=== PATIENT | female | born 1960 | race Two or more races ===

== ENCOUNTER → 2024-09-19 | Outpatient (CLI) | payer MEDICAID, SELFPAY ==
--- NOTE | 2024-09-19 12:40 | XR_ITS ---
Examination: Knee, left , 3 views Technique: Knee AP, lateral, oblique 3 views, standing Date and time of exam: September 19, 2024 1247 hours INDICATIONS: Knee pain post arthroscopy 3 months ago FINDINGS: Prominent osteopenia Moderate to advanced tricompartment arthritis No fracture Small knee effusion IMPRESSION: Moderate to advanced tricompartment osteoarthritis
== END | disposition home or self-care (01) ==
LOC: SDIM 12:29
PROVIDERS: PCP Physician Assistant; Referring Provider Orthopaedic Surgery; Visit Provider Orthopaedic Surgery
DX: M17.12 Unilateral primary osteoarthritis, left knee (principal); Z98.890 Other specified postprocedural states
CPT/HCPCS: 73562

== ENCOUNTER 2024-09-26 20:20 | Inpatient (IN) | payer MEDICAID, SELFPAY ==
--- NOTE | 2024-09-25 11:26 | EKG_ITS ---
[facility] Test Date: 2024-09-25 Pat Name: AMIRA LONG Department: Room: - Gender: Female Spa Associate: BRENT : 1960 Requested By: Nahum Jesus Order Number: [id number] Reading MD: Nahum Jesus Measurements Intervals [place] Rate: 60 P: 52 FL: 157 QRS: 41 QRSD: 90 T: 9 QT: 429 QTc: 429 Interpretive Statements SINUS RHYTHM MODERATE T-WAVE ABNORMALITY, CONSIDER ANTEROLATERAL ISCHEMIA [-0.1+ mV T WAVE IN V3-V6] Compared to ECG 10/12/2023 11:29:51 No significant changes /store/S0/[id number]/ecg/[id number].pdf
[2024-09-25 11:28] VITALS: BMI 35.8
[2024-09-25 13:03] LABS: Basophils # (Auto) 0.1 Thou/mm3 (0.0-0.2); Basophils % (Auto) 1 % (0-2.5); Eosinophils # (Auto) 0.3 Thou/mm3 (0.0-0.5); Eosinophils % (Auto) 5 % (0-10); Hematocrit 33.8 % (36.0-46.0); Hemoglobin 10.5 g/dL (12.0-16.0); Immature Granulocytes % (Auto) 0 % (0-0); Immature Granulocytes Auto 0.02 Thou/mm3 (0.00-0.00); Lymphocytes # (Auto) 1.4 Thou/mm3 (1.0-4.8); Lymphocytes % (Auto) 27 % (10-50); Mean Corpuscular HGB Conc 31.1 g/dl (31.0-37.0); Mean Corpuscular Hemoglobin 26.9 pg (25.0-35.0); Mean Corpuscular Volume 86 fL (80-100); Monocytes # (Auto) 0.5 Thou/mm3 (0.0-0.8); Monocytes % (Auto) 10 % (0-12); Neutrophils % (Auto) 57 % (37-80); Nucleated Red Blood Cell % 0 /100 WBC (0); Platelet Count 349 Thou/mm3 (140-440); RDW Standard Deviation 50.4 fL (36.4-46.3); Red Blood Count 3.91 Miln/mm3 (4.00-5.20); White Blood Count 5.3 Thou/mm3 (3.6-11.0)
[2024-09-25 13:11] LABS: Partial Thromboplastin Time 30.8 Seconds (22.0-36.0); Prothrombin Time 10.9 Seconds (9.0-12.2)
[2024-09-25 13:18] LABS: Alanine Aminotransferase 15 U/L (10-49); Albumin, Serum 4.3 gm/dL (3.4-4.8); Albumin/Globulin Ratio 1.5 (1.2-2.2); Alkaline Phosphatase 74 U/L (46-116); Anion Gap 6 (7-16); Aspartate Amino Transferase 18 U/L (0-34); BUN/Creatinine Ratio 26 Ratio (12-20); Bilirubin,Total 0.2 mg/dL (0.3-1.2); Blood Urea Nitrogen 23 mg/dL (9-23); Calcium 9.1 mg/dL (8.3-10.6); Calcium (Corrected) 9.1 mg/dL (8.5-10.1); Carbon Dioxide 28.8 mMol/L (20.0-31.0); Chloride 107 mMol/L (98-107); Creatinine (Component) 0.9 mg/dL (0.6-1.3); Globulin 2.9 gm/dL (2.3-3.5); Glucose 97 mg/dL (74-106); Osmolality,Calculated 286 (275-295); Potassium 4.8 mMol/L (3.4-5.1); Sodium 142 mMol/L (136-145); Total Protein 7.2 gm/dL (5.7-8.2); eGFR > 60 See Note
--- NOTE | 2024-09-25 13:59 | SUR.PREOP ---
Voice message left for patient to come in at 0900 tomorrow for surgery.
--- NOTE | 2024-09-25 14:23 | ESHP_ITS ---
RE: AMIRA LONG : 1960 DATE OF ADMISSION: 09/26/2024 HISTORY OF PRESENT ILLNESS: The patient presented to me earlier with history of pain, swelling, and locking of the left knee joint. Pain is quite bad. The patient graded intensity of pain 9-10/10. The patient is unable to sleep. Quality of life and activities of daily living is affected. The patient underwent arthroscopic procedure in the past, but it did not help her. The patient wants something to be done about it. PAST MEDICAL HISTORY: The patient has history of diabetes mellitus, high blood pressure. No history of asthma, seizure, chest pain, or myocardial infarction. The patient has history of fibromyalgia. PAST SURGICAL HISTORY: Right shoulder surgery, bladder surgery, gastric bypass surgery, hysterectomy, and recently left knee arthroscopy. DRUG HISTORY: The patient is on, 1. Amlodipine. 2. Lisinopril. 3. Metformin. 4. Tramadol. 5. Levothyroxine. ALLERGIES: NIL KNOWN. FAMILY HISTORY AND SOCIAL HISTORY: The patient denies smoking, drinking, is not working. PHYSICAL EXAMINATION: GENERAL: Normal built lady. VITAL SIGNS: Pulse 86 per minute. Blood pressure is 128/78. NECK: Soft, supple. No masses felt. Trachea is centrally placed. CARDIOVASCULAR SYSTEM: First and second heart sounds normal. No murmur heard. LUNGS: Bilateral vesicular breath sounds. CHEST: Clear. ABDOMEN: Soft. No masses felt. Bowel sounds present. EXTREMITIES: Left knee examination revealed 1+ swelling and 2+ tenderness. Active range of motion 0-110 degrees of flexion. Patellofemoral crepitus is present. The patient walks with a limp. DIAGNOSTIC DATA: X-ray confirms significant osteoarthritic changes of the left knee joint. ASSESSMENT AND PLAN: Since the patient is symptomatic and it is affecting quality of life, therefore, left total knee replacement was discussed and advised. Risks with anesthesia was explained and that includes, but not limited to reaction to anesthetic agents, cardiac arrest or rarely it might be fatal. Risks with operations include infection and if that happens, the patient may need further surgical pressure. Sometimes rare complications including possible damage to nerve or vessels may take place and if that happens, that has to be taken care of. No guarantees given regarding the outcome of the procedure and/or relief of symptoms. Accordingly, surgery is booked for 09/26/2024. Appropriate lab work done. DT: 12:54:39 TT: 14:21:00 Ref: [id number] - TID: [id number]
[2024-09-26] VITALS (29 sets, daily range): BP systolic 103–157; BP diastolic 68–112; PULSE 71–105; RESP 12–25; TEMP 35.9–37.1; O2SAT 93–100; BMI 36.8; BMI 36.9
--- NOTE | 2024-09-26 10:01 | SUR.PREOP ---
Patient expressed gratitude for prayer before their procedure.
[2024-09-26] MEDS: RINGERS LACTATED 1000 ML 1,000 ML 20 ML IV (10:10)
--- NOTE | 2024-09-26 13:42 | XR_ITS ---
Examination: Knee, left , 3 views Technique: Knee AP, lateral, oblique 3 views Date and time of exam: September 26, 2024 1506 hrs. Indications: Postop knee replacement Findings: Total left knee arthroplasty. Satisfactory alignment. No fracture Impression: Total left knee arthroplasty with satisfactory alignment
--- NOTE | 2024-09-26 13:43 | ESOP_ITS ---
Date of Procedure 09/26/24 Pre Op Diagnosis Severe DJD left knee joint Post Op Diagnosis Same Procedure Left total knee replacement. Smooth persona implant. Femur size 6 narrow Tibial baseplate size D Polyethylene size 10 mm with medial stabilizer Patellar size 26 mm Findings Patient has significant osteoarthritic changes of the left knee joint. The articular surface were completely absent on the medial side. There is significant osteophyte present on the femur, tibia and patella. Medial joint space was almost absent Procedure Description The patient was given a [spinal] anesthesia. Once satisfactory anesthesia was achieved a tourniquet was placed on left upper thigh. Intravenous antibiotics was given at the time of anesthesia. The patient was thoroughly prepped and draped. After using Esmarch the tourniquet pressure was raised to 350 mmHg. A skin incision was made 2 inches proximal to the upper pole of patella going as far down as up to the medial aspect of the tibial tuberosity. The skin was raised as a flap on the site. The bleeding vessels were electrocoagulated as and when encountered. The quadriceps tendon, medial border of the patella and the patellar tendon along the medial aspect of the tibial tuberosity was incised and reflected. The patellar tendon was reflected as much as needed to dagoberto the patella. The soft tissue from the upper medial border of the tibia was reflected to correct her genu varum deformity. The knee joint was flexed. The anterior cruciate ligament, medial and lateral meniscus were excised. Next para drill hole was made to the inferior surface of the femur. Following that a swab was placed. A 6?? of abduction was already put into it. Following that a cutting block for the inferior cut of the femur was placed and nicely secured with the pins. The swat was removed. The inferior cut of the femur was made and after that the cutting block was removed. Following that a sizer was placed. A decision was made to use size [6] femur implant. 2 drill holes each in 3?? of external rotation were made. The sizer was removed. Size [6] cutting block was placed. Following that anterior, posterior, anterior chamfer and posterior chamfer cuts were made. The cutting block was removed. The knee joint was extended and a 10 mm trial plastic was removed and the i ntended level of the tibial cut was marked. The knee joint was flexed. With the help of double-pronged the tibia was displaced anteriorly. An extramedullary jig for the cutting block placement of the tibia was placed. The mechanical axis of the zig was parallel to the mechanical axis of the tibia. Following that the tibial cutting block was placed at the desired level and was secured nicely with the help of pins. Following that the tibial cut was made. In this case was posterior cruciate ligament was saved. The cutting block was removed. The spacer was placed and a decision was made to use size [10] polyethylene. The sizing of the tibial baseplate was done and the decision was made to use size [D] tibial baseplate. Following that size [6] trial femur implant was placed in lateralized position and size [D] tibial tibial baseplate along with size [10] plastic was placed in knee joint was flexed and extended quite a few times and tibial baseplate was allowed to sit wherever it wanted to. The markings were made for the tibial baseplate. In this case medial stabilizer trial plastic was used 2 drill holes were made for the inferior surface of the femur trial implant. The trial implant was removed and tibial baseplate was placed again with the help of pins. The collar was placed and superior hole was drilled. Following that a fin cut was made. The patella was reamed with [26] mm diameter reamer. [12] mm thickness was left. A collar was placed and 3 drill holes were made. All the trial implant was placed and patellar tracking was checked and found to be good. Lateral release was done at this point. The wound was irrigated with antibiotic solution every 4-5 minutes. Now the power lavage antibiotic solution was used. The knee joint was flexed. The bone were made dry. The cement was mixed. With the help of cement the tibial baseplate was mounted. The excess cement was removed. The femur implant was placed and trial plastic was placed and knee joint was extended. Patella was also mounted with the help of cementing. Excess cement was removed. Osteophytes from the patella was removed at this time. Once the cement was set the tourniquet pressure was released. The bleeding vessels were electrocoagulated. The trial plastic was removed and 10 mm medial stabilizer ultra high molecular weight polyethylene was placed. Closer. The quadricep tendon was closed with the help of 1 strata fix in continuous fashion. The subcu cutaneous tissue and fat layer was closed with the help of 2 strata fix in continuous fashion. Subcuticular stitch was placed. Prineo tape was applied. Patient tolerated procedure well. Estimated blood loss 25 mL Patient tolerated procedure very well. Estimated blood loss [25] mL. Prognosis in this case is good. This was taken to the recovery room in good condition. Anesthesia GETA and other Pathology / specimen None Estimated Blood Loss 25 Surgeon Nahum Julien MD Surgical Staff Operation Date: 09/26/24 11:00 Case Staff Anesthesiologist: Best Pryor RNgate keeper: Vicente Ruffin
--- NOTE | 2024-09-26 14:06 | SUR.PHASEI ---
1400 Patient arrived to recovery resting comfortably in bed, on oxygen 8L via oxy mask with an oral airway in place, breathing unlabored, vital signs stable, dressing intact to left lower extremity; prineo, abd, bias roll, silk tape, stockinette, no bleeding noted, bilateral dorsalis pedis pulses present when palpated, patient has good circulation to left lower extremity; skin color normal for patient and warm to touch, report received from Shanita STODDARD and Dr. Pryor
--- NOTE | 2024-09-26 16:04 | SUR.PHASEI ---
patients daughter at bedside with patient
--- NOTE | 2024-09-26 16:10 | SUR.PHASEI ---
[address] Julien regarding patient home medication, telephone order read-back received for hospitalist consult to manage patient home medications and pre-existing health issues, will place order in EMR and follow up with hospitalist, telephone order read-back received to change patient diet from regular to consistent carb-low, will place order in EMR
--- NOTE | 2024-09-26 16:23 | ESCONSULT_ITS ---
<Statement entered by Zeeshan Randhawa MD - 09/27/24 09:38> Senior Resident Attestation: I supervised/discussed management plan with sales management intern physician Dr. Rangel, and was involved in the care of this patient. I personally saw and examined the patient and discussed the assessment and plan with the entire medicine team, including my attending. I agree with the assessment and plan as documented. Patient's care was discussed with attending physician, Dr. Guajardo. Zeeshan Randhawa MD PGY-2. HPI Data of Consult Requesting Physician: Nahum Julien MD Attending Provider: Nahum Julien MD Primary Care Provider: Addi Schreiber Consult Narrative Reason for consult: Managment of chronic conditions History of present illness: Ms. Stevens is a 63-year-old female with past medical history significant for type 2 diabetes, hypertension, hyperlipidemia, hypothyroidism and anxiety disorder is status post left total knee replacement surgery. Patient denies any chest pain palpitations or shortness of breath she is currently saturating 96% on 2 L of oxygen. Patient denies any abdominal pain states that she had a bowel movement this morning before surgery denies any constipation or diarrhea. Hospital team is consulted to manage patient's chronic medical conditions. PMH: T2DM, hypertension, hyperlipidemia, hypothyroidism, anxiety disorder PSH: Right shoulder surgery, right knee surgery, bladder surgery SH: Patient denies any drug use or alcohol. Patient stopped smoking cigarettes 35 years ago Home meds: Lisinopril, amlodipine, metformin, levothyroxine, duloxetine, clonazepam cc:: cc: Nahum Julien MD Review of Systems Review of Systems Systems Reviewed: All systems reviewed, normal except as documented Exam Vital Signs Temp Pulse Resp BP Pulse Ox O2 Flow Rate 97.6 F 74 151 H 117/79 97 2 09/26/24 15:37 09/26/24 15:52 09/26/24 15:52 09/26/24 15:52 09/26/24 15:52 09/26/24 15:52 Narrative Exam GENERAL: A&Ox3 . Awake, Not in acute distress, well groomed, calm, saturating on 2L O2 via NC NEURO: no focal neurological deficits notes HEENT: Atraumatic, Normocephalic. mucous membranes moist. Eyes open, symmetrical, & clear HEART: Normal Heart Sounds LUNGS: Clear to auscultation with no wheezing or crackles. ABDOMEN: soft, non-distended, non-tender, bowel sounds heard, no guarding or rebound tenderness SKIN: No Rash or ecchymoses EXTREMITIES: No edema, tenderness, able to move all 4 extremities, pedal pulses palpated, left knee is in surgical wrap appears to dry and clean Results Labs 09/27/24 04:20 09/27/24 04:20 Quality Measures Quality Measures none Medications Home Medications and Allergies Home Medications ?Medication ?Instructions ?Recorded ?Confirmed ?Type lisinopril 10 mg tablet 20 mg PO QDAY #0 tabs 09/26/24 History metformin 500 mg tablet 500 mg PO DAILY 07/21/1805/12 History pregabalin 75 mg capsule (Lyrica) 75 mg PO TID 9 09/26/24 History amlodipine 5 mg tablet 10 mg PO QDAY 10/12/2309/26 History cetirizine 10 mg tablet (Zyrtec) 10 mg PO QDAY 4 09/26/24 History clonazepam 0.5 mg tablet (Klonopin) 1 mg PO BID 09/26/24 History duloxetine 30 mg capsule,delayed 30 mg PO HS 10/12/23 09/26/24 History release levothyroxine 125 mcg tablet 125 mcg PO DAILY 10/12/23 09/26/24 History tramadol 50 mg tablet 100 mg PO TID 10/12/2309/26 History Allergies Allergy/AdvReac Type Severity Reaction Status Date / Time No Known Allergies Allergy Verified 09/26/24 09:47 Visit Medications Fentanyl Citrate (Fentanyl Cit Inj 50 Mcg/Ml Amp 2ml) 50 mcg IV Q5MIN PRN PRN Reason: PAIN SCALE 4-10(Mod-Sev Hydralazine HCl (Hydralazine Inj 20 Mg/Ml Vial) 5 mg IV Q20MIN PRN PRN Reason: SEE COMMENTS Hydromorphone HCl (Hydromorphone Inj 2 Mg/Ml Vial) 0.5 mg IV Q10MIN PRN PRN Reason: PAIN SCALE 4-10(Mod-Sev Lactated Ringer's (Lactated Ringers) 1,000 mls @ 20 mls/hr IV .Q24H ONE Stop: 09/27/24 05:59 Last Admin: 09/26/24 10:10 Dose: 20 mls/hr Meperidine HCl (Meperidine Inj 50 Mg/Ml Vial) 12.5 mg IV Q5M PRN PRN Reason: SHIVERING Metoclopramide HCl (Metoclopramide Inj 5 Mg/Ml Vial 2 Ml) 10 mg IVP X1 PRN; Protocol PRN Reason: NAUSEA OR VOMITING Metoprolol Tartrate (Metoprolol Tartrate Inj 1 Mg/Ml Amp 5 Ml) 1 mg IVP Q5MIN PRN PRN Reason: TACHYCARDIA Midazolam HCl (Midazolam Inj 1 Mg/Ml Vial 2 Ml) 1 mg IV Q5MIN PRN PRN Reason: ANXIETY Ondansetron HCl (Ondansetron Inj 2 Mg/Ml Inj 2 Ml) 4 mg IV X1 PRN PRN Reason: NAUSEA OR VOMITING Discontinued Medications Sodium Chloride 1,000 ml/ (Gentamicin Sulfate 40 mg) 0 ml IRRIG X1 ONE Stop: 09/26/24 07:08 Sodium Chloride 3,000 ml/ (Gentamicin Sulfate 120 mg) 0 ml IRRIG X1 ONE Stop: 09/26/24 07:08 Cefazolin Sodium (Ancef 2gm Ivpb) 2 gm in 100 mls @ 100 mls/hr IV X1 ONE Stop: 09/26/24 06:59 Assessment & Plan Plan Ms. Stevens is a 63-year-old female with past medical history significant for type 2 diabetes, hypertension, hyperlipidemia, hypothyroidism and anxiety disorder is status post left total knee replacement surgery. #Status post knee replacement surgery, left -Patient underwent left knee replacement surgery with Dr. Julien on 09/26 -Will resume DVT prophylaxis based on surgery preference tomorrow -Physical therapy will be ordered tomorrow -Pain control as needed ordered #Primary hypertension #Hyperlipidemia -Resumed home amlodipine and lisinopril for tomorrow -Patient does not take any statins for hyperlipidemia -Lipid panel ordered for a.m. lab #Type 2 diabetes mellitus -A1c ordered for morning lab -Resumed home metformin #Hypothyroidism -Order TSH for a.m. labs -Resumed home levothyroxine #Anxiety disorder -Will hold home clonazepam today due to surgery and anesthesia during surgery and will resume tomorrow -Resumed home duloxetine at bedtime Health Maintenance Disposition: Medsurg DVT Prophylaxis: will hold due to status post surgery, will resume tomorrow GI Prophylaxis: not indicated Diet: carbohydrate consistent Lines: Peripheral lines Code status: Full Assessment and plan discussed with my senior resident Dr. Randhawa & attending physician Dr. Casandra Rangel (PGY-1)- Internal medicine resident Attending Provider Attestation/Addendum I attest that I was physically present for the evaluation, physical examination, lab and imaging review of the patient with the residents. I discussed the case with the residents and agree with the findings and plans of care as documented above. Patient is a 63 years old female with past medical history of diabetes, hypertension, hyperlipidemia, hypothyroidism and anxiety disorder who was admitted for left total knee replacement and underwent the procedure today with orthopedics. Internal medicine consult was requested for management of her medical problems. At bedside, patient appears comfortable, states that her pain has been well-controlled with analgesics. Denies any new complaints. Vital signs are stable, lab results are nonconcerning as well. Resumed her home amlodipine and lisinopril for high blood pressure. Also resumed her home metformin, levothyroxine and duloxetine for diabetes, hypothyroidism and anxiety disorder respectively. We will obtain a lipid panel for a.m. Thank you for the opportunity to participate in care of this patient. We will follow patient along with you. Jose Guajardo MD
--- NOTE | 2024-09-26 16:39 | SUR.PHASEII ---
1639: received report from RICHI Funez. pt alert and oriented but drifts back to sleep. denies any pain or discomfort. no s/s of resp. distress or discomfort. dressing to left knee clean, dry and intact. no bleeding noted from dressing. positive CMS: positive pulse, cap refill less than 2 seconds and able to wiggle left toes.
--- NOTE | 2024-09-26 16:39 | SUR.PHASEII ---
1639 Report given to Jodi Yun RN to assume care of patient, hospitalist at beside with patient assessing patient, patient awake and alert, breathing unlabored, vital signs stable, denies pain, dressing intact; no bleeding noted, patient has good circulation to left lower extremity, drinking 7up; tolerating well, denies nausea
[2024-09-26] MEDS: fentaNYL CIT INJ 50 mCg/ML AMP 2ML IV (17:26)
--- NOTE | 2024-09-26 17:30 | SUR.PHASEII ---
1730: urine output 700 ml
--- NOTE | 2024-09-26 18:00 | SUR.PHASEII ---
1800: ate dinner 100%
--- NOTE | 2024-09-26 19:51 | SUR.PHASEII ---
1950: given report to RICHI Perry at this time.
--- NOTE | 2024-09-26 19:55 | SUR.PHASEII ---
1954: pt transfer to room 358 via bed with daughter at the bedside. pt alert and oriented to name, place and time. denies any pain or discomfort. no s/s of resp. distress or discomfort. dressing to left knee clean, dry and intact. positive CMS: cap refill less than 2seconds, positive pulse and able to wiggle toes.
[2024-09-26] MEDS: MORPHINE SULF INJ 10 MG/ML VIAL 4 MG IV (20:50)
[2024-09-26] MEDS: ceFAZolin/D5W 1 GM IVPB 1 GM/50 ML BAG IV (20:50)
[2024-09-26] MEDS: DULoxetine HCL 30 MG CAPSULE PO (20:50)
[2024-09-27] VITALS (9 sets, daily range): BP systolic 126–164; BP diastolic 66–85; PULSE 75–94; RESP 16–20; TEMP 36.1–37.1; O2SAT 95–98
[2024-09-27] MEDS: MORPHINE SULF INJ 10 MG/ML VIAL 4 MG IV (03:10)
[2024-09-27] MEDS: ceFAZolin/D5W 1 GM IVPB 1 GM/50 ML BAG IV (04:37)
[2024-09-27] MEDS: LEVOTHYROXINE SODIUM 125 MCG TABLET PO (05:40)
[2024-09-27 05:51] LABS: Basophils % (Auto) 0 % (0-2.5); Eosinophils % (Auto) 0 % (0-10); Hematocrit 30.5 % (36.0-46.0); Hemoglobin 9.5 g/dL (12.0-16.0); Immature Granulocytes % (Auto) 0 % (0-0); Immature Granulocytes Auto 0.02 Thou/mm3 (0.00-0.00); Lymphocytes # (Auto) 1.2 Thou/mm3 (1.0-4.8); Lymphocytes % (Auto) 18 % (10-50); Mean Corpuscular HGB Conc 31.1 g/dl (31.0-37.0); Mean Corpuscular Hemoglobin 26.8 pg (25.0-35.0); Mean Corpuscular Volume 86 fL (80-100); Monocytes # (Auto) 0.4 Thou/mm3 (0.0-0.8); Monocytes % (Auto) 5 % (0-12); Neutrophils # (Auto) 5.1 Thou/mm3 (1.8-7.7); Neutrophils % (Auto) 76 % (37-80); Nucleated Red Blood Cell % 0 /100 WBC (0); Platelet Count 329 Thou/mm3 (140-440); RDW Standard Deviation 49.9 fL (36.4-46.3); Red Blood Count 3.55 Miln/mm3 (4.00-5.20); White Blood Count 6.7 Thou/mm3 (3.6-11.0)
[2024-09-27 06:12] LABS: Glucose Estimated Average 114 mg/dL (80-131); Hemoglobin A1C 5.6 % Hgb (4.8-6.0)
[2024-09-27 06:16] LABS: Alanine Aminotransferase 15 U/L (10-49); Albumin, Serum 3.9 gm/dL (3.4-4.8); Albumin/Globulin Ratio 1.6 (1.2-2.2); Alkaline Phosphatase 65 U/L (46-116); Anion Gap 7 (7-16); Aspartate Amino Transferase 21 U/L (0-34); BUN/Creatinine Ratio 20 Ratio (12-20); Bilirubin,Total 0.2 mg/dL (0.3-1.2); Blood Urea Nitrogen 16 mg/dL (9-23); Calcium (Corrected) 9.1 mg/dL (8.5-10.1); Carbon Dioxide 28.7 mMol/L (20.0-31.0); Cardiac Risk Estimate 2.7 RATIO (3.7-5.6); Chloride 107 mMol/L (98-107); Cholesterol 147 mg/dL (132-200); Creatinine (Component) 0.8 mg/dL (0.6-1.3); Estimated Creatinine Clearance 74.8 mL/min (>60); Globulin 2.5 gm/dL (2.3-3.5); Glucose 114 mg/dL (74-106); HDL Cholesterol 55 mg/dL (40-60); LDL Cholesterol,Calculated 76 mg/dL (0-130); Magnesium 2.1 mg/dL (1.6-2.6); Osmolality,Calculated 287 (275-295); Potassium 4.4 mMol/L (3.4-5.1); Sodium 143 mMol/L (136-145); Thyroid Stimulating Hormone 3.15 uIU/mL (0.55-4.78); Total Protein 6.4 gm/dL (5.7-8.2); Triglycerides 81 mg/dL (30-150); eGFR > 60 See Note
[2024-09-27] MEDS: amLODIPine BESYLATE 5 MG TABLET 10 MG PO (08:44)
[2024-09-27] MEDS: Lisinopril 20 MG TABLET PO (08:45)
[2024-09-27] MEDS: traMADol HCL 50 MG TABLET 100 MG PO ×3 (10:05→19:47)
--- NOTE | 2024-09-27 10:08 | ESPR_ITS ---
Documentation for date of: 09/27/24 Subjective Subjective Interval history: Patient is seen and examined at bedside. Patient endorses her pain is well- controlled with medications denies any pain. Patient did request that if we could resume her home Ativan as she feels very anxious. Patient also has physical therapy scheduled soon therefore encouraged the patient to take oral pain control rather than IV. Patient would like tramadol as she has previously used it. Patient has no other complaints. Vitals are stable and labs are within normal limits. Exam Vital Signs Temp Pulse Resp BP Pulse Ox O2 Del Method O2 Flow Rate 97.6 F 75 16 138/66 H 98 Nasal Cannula 2 09/27/24 08:00 09/27/24 08:45 09/27/24 08:00 09/27/24 08:45 09/27/24 08:00 09/27/24 08:00 09/27/24 08:00 Narrative Exam GENERAL: A&Ox3 . Awake, Not in acute distress, well groomed, calm, saturating on room air NEURO: no focal neurological deficits notes HEENT: Atraumatic, Normocephalic. mucous membranes moist. Eyes open, symmetrical, & clear HEART: Normal Heart Sounds LUNGS: Clear to auscultation with no wheezing or crackles. ABDOMEN: soft, non-distended, non-tender, bowel sounds heard, no guarding or rebound tenderness SKIN: No Rash or ecchymoses EXTREMITIES: No edema, tenderness, able to move all 4 extremities, pedal pulses palpated, left knee is in surgical wrap appears to dry and clean Objective Labs 09/27/24 04:20 09/27/24 04:20 Labs: Laboratory Results - last 24 hr 09/25/24 09/27/24 12:25 04:20 WBC 6.7 RBC 3.55 L Hgb 9.5 L Hct 30.5 L MCV 86 MCH 26.8 MCHC 31.1 RDW Std Deviation 49.9 H Plt Count 329 Neut % (Auto) 76 Lymph % (Auto) 18 [place] % (Auto) 5 Eos % (Auto) 0 Baso % (Auto) 0 Neut # (Auto) 5.1 Lymph # (Auto) 1.2 [place] # (Auto) 0.4 Eos # (Auto) 0.0 Baso # (Auto) 0.0 Immature Gran # (Auto) 0.02 H Absolute Nucleated RBC 0.00 Immature Gran % 0 Nucleated RBC % 0 Sodium 143 Potassium 4.4 Chloride 107 Carbon Dioxide 28.7 Anion Gap 7 BUN 16 Creatinine 0.8 Estim Creat Clear Calc 74.8 eGFR > 60 BUN/Creatinine Ratio [address]ucose [address] Glu mg/dL 114 Hemoglobin A1c 5.6 Calculated Osmolality 287 Calcium 9.0 Corrected Calcium 9.1 Phosphorus 4.0 Magnesium 2.1 Total Bilirubin 0.2 L AST 21 ALT 15 Alkaline Phosphatase 65 Total Protein 6.4 Albumin 3.9 Globulin 2.5 Albumin/Globulin Ratio 1.6 Triglycerides 81 Cholesterol 147 LDL Cholesterol, Calc 76 HDL Cholesterol 55 Cholesterol/HDL Ratio 2.7 L TSH 3.15 Blood Type O Negative Antibody Screen NEGATIVE Crossmatch See Detail Blood Bank Wristband ID Yes Quality Measures Quality Measures none Assessment & Plan Assessment Current Active Medications: Generic Name Dose Route Start Last Admin Trade Name Freq PRN Reason Stop Dose Admin Amlodipine Besylate 10 mg 09/27/24 09:00 09/27/24 08:44 Amlodipine Besylate 5 Mg Tablet PO 10/27/24 08:59 10 mg QDAY RAFY Administration Duloxetine HCl 30 mg 09/26/24 21:00 09/26/24 20:50 Duloxetine Hcl 30 Mg Capsule PO 10/26/24 20:59 30 mg HS RAFY Administration Levothyroxine Sodium 125 mcg 09/27/24 06:00 09/27/24 05:40 Levothyroxine Sodium 125 Mcg Tablet PO 10/27/24 05:59 125 mcg ACBR RAFY Administration Lisinopril 20 mg 09/27/24 09:00 09/27/24 08:45 Lisinopril 20 Mg Tablet PO 10/27/24 08:59 20 mg QDAY RAFY Administration Morphine Sulfate 4 mg 09/27/24 09:58 Morphine Sulf Inj 10 Mg/Ml Vial IV 10/01/24 20:19 Q4HR PRN PAIN Ondansetron HCl 4 mg 09/26/24 20:20 Ondansetron Inj 2 Mg/Ml Inj 2 Ml IV 10/26/24 20:19 Q6HR PRN NAUSEA OR VOMITING Tramadol HCl 100 mg 09/27/24 09:56 09/27/24 10:05 Tramadol Hcl 50 Mg Tablet PO 10/02/24 09:55 100 mg Q6HR PRN Administration PAIN Plan Ms. Morairiarte is a 63-year-old female with past medical history significant for type 2 diabetes, hypertension, hyperlipidemia, hypothyroidism and anxiety disorder is status post left total knee replacement surgery. #Status post knee replacement surgery, left -Patient underwent left knee replacement surgery with Dr. Julien on 09/26 -Physical therapy ordered -Pain control as needed ordered -DVT prophylaxis as per orthopedic surgeon #Primary hypertension #Hyperlipidemia -Resumed home amlodipine and lisinopril for tomorrow -Patient does not take any statins for hyperlipidemia -Lipid panel within normal limits #Type 2 diabetes mellitus -A1c 5.6 on 09/27 -Resumed home metformin #Hypothyroidism -TSH 3.15 on 09/27 -Resumed home levothyroxine #Anxiety disorder -resumed home clonazepam -Resumed home duloxetine at bedtime Health Maintenance Disposition: Medsurg DVT Prophylaxis: as per orthopedic surgeon preference GI Prophylaxis: not indicated Diet: carbohydrate consistent Lines: Peripheral lines Code status: Full Assessment and plan discussed with my attending physician Dr. Casandra Rangel (PGY-1)- Internal medicine resident Attending Provider Attestation/Addendum I attest that I was physically present for the evaluation, physical examination, lab and imaging review of the patient with the residents. I discussed the case with the residents and agree with the findings and plans of care as documented above. At bedside today, patient states she is feeling well. Her pain has been well- controlled with analgesics. She requested to resume her home Ativan for anxiety, which is resumed. Also stated that she prefers tramadol for pain control, started on tramadol as well. We will continue her medication for hypertension, diabetes, hypothyroidism and anxiety disorder. Patient undergoing physical therapy. Thank you for the opportunity to participate in care of this patient. We will follow patient along with you. Jose Guajardo MD
[2024-09-27] MEDS: clonazePAM 0.5 MG TABLET 1 MG PO (20:47)
[2024-09-27] MEDS: DULoxetine HCL 30 MG CAPSULE PO (20:47)
--- NOTE | 2024-09-27 20:50 | PC.NURSE ---
Pt is crying for pain, Tramadol was given an hour ago but still in too much pain, MD Win made aware, new order made for IV pain meds, will administer pain meds once available.
[2024-09-27] MEDS: MORPHINE SULF INJ 10 MG/ML VIAL 2 MG IVP (21:16)
[2024-09-28] VITALS (8 sets, daily range): BP systolic 110–145; BP diastolic 59–85; PULSE 87–115; RESP 16–20; TEMP 36.3–36.8; O2SAT 93–99
[2024-09-28] MEDS: MORPHINE SULF INJ 10 MG/ML VIAL 2 MG IVP ×3 (01:26→17:28)
[2024-09-28] MEDS: LEVOTHYROXINE SODIUM 125 MCG TABLET PO (05:32)
[2024-09-28 05:49] LABS: Basophils % (Auto) 0 % (0-2.5); Eosinophils # (Auto) 0.1 Thou/mm3 (0.0-0.5); Eosinophils % (Auto) 1 % (0-10); Hematocrit 31.3 % (36.0-46.0); Hemoglobin 9.8 g/dL (12.0-16.0); Immature Granulocytes % (Auto) 0 % (0-0); Immature Granulocytes Auto 0.02 Thou/mm3 (0.00-0.00); Lymphocytes # (Auto) 2.6 Thou/mm3 (1.0-4.8); Lymphocytes % (Auto) 33 % (10-50); Mean Corpuscular HGB Conc 31.3 g/dl (31.0-37.0); Mean Corpuscular Hemoglobin 26.3 pg (25.0-35.0); Mean Corpuscular Volume 84 fL (80-100); Monocytes # (Auto) 0.9 Thou/mm3 (0.0-0.8); Monocytes % (Auto) 11 % (0-12); Neutrophils # (Auto) 4.4 Thou/mm3 (1.8-7.7); Neutrophils % (Auto) 55 % (37-80); Nucleated Red Blood Cell % 0 /100 WBC (0); Platelet Count 283 Thou/mm3 (140-440); Red Blood Count 3.72 Miln/mm3 (4.00-5.20); White Blood Count 7.9 Thou/mm3 (3.6-11.0)
[2024-09-28 06:19] LABS: Alanine Aminotransferase 12 U/L (10-49); Albumin, Serum 3.9 gm/dL (3.4-4.8); Albumin/Globulin Ratio 1.4 (1.2-2.2); Alkaline Phosphatase 65 U/L (46-116); Anion Gap 8 (7-16); Aspartate Amino Transferase 22 U/L (0-34); BUN/Creatinine Ratio 18 Ratio (12-20); Bilirubin,Total 0.3 mg/dL (0.3-1.2); Blood Urea Nitrogen 14 mg/dL (9-23); Calcium 8.6 mg/dL (8.3-10.6); Calcium (Corrected) 8.7 mg/dL (8.5-10.1); Chloride 102 mMol/L (98-107); Creatinine (Component) 0.8 mg/dL (0.6-1.3); Estimated Creatinine Clearance 74.8 mL/min (>60); Globulin 2.8 gm/dL (2.3-3.5); Glucose 99 mg/dL (74-106); Magnesium 1.8 mg/dL (1.6-2.6); Osmolality,Calculated 274 (275-295); Phosphorous 2.7 mg/dL (2.4-5.1); Potassium 3.6 mMol/L (3.4-5.1); Sodium 137 mMol/L (136-145); Total Protein 6.7 gm/dL (5.7-8.2); eGFR > 60 See Note
[2024-09-28] MEDS: clonazePAM 0.5 MG TABLET 1 MG PO (09:26)
[2024-09-28] MEDS: traMADol HCL 50 MG TABLET 100 MG PO ×3 (09:27→20:41)
[2024-09-28] MEDS: Lisinopril 20 MG TABLET PO (09:27)
[2024-09-28] MEDS: amLODIPine BESYLATE 5 MG TABLET 10 MG PO (09:27)
--- NOTE | 2024-09-28 10:09 | CHAP ---
Patient was visited by the Spiritual Care Volunteer who prayed for them. (Volunteer was in the hospital from 11:05-11:50.)
--- NOTE | 2024-09-28 13:18 | ESPR_ITS ---
Documentation for date of: 09/28/24 Subjective Subjective Interval history: Patient was seen and examined at the bedside. No acute overnight events. She reports pain in her knee and was taking tramadol, advised to ask for morphine as needed for pain. Will continue current management and monitor patient. Exam Vital Signs Temp Pulse Resp BP Pulse Ox O2 Del Method O2 Flow Rate 97.3 F 100 16 118/59 L 96 Nasal Cannula 2 09/28/24 12:00 09/28/24 12:00 09/28/24 12:00 09/28/24 12:00 09/28/24 12:00 09/28/24 07:48 09/28/24 07:48 Narrative Exam Gen: Well-developed and well-nourished female. HEENT: NCAT, PERRLA, EOMI, MMM, anicteric conjunctivae. CVS: normal S1 and S2. RRR. No M/R/G. Resp: CTA B/L. No rhonchi, rales, crackles or wheezing. Abd: soft, non-tender, non-distended. BS+ in all 4 quadrants. MSK: No edema or rash. Left knee is in surgical wrap appears to dry and clean, tender to ROM. Neuro: CN II-XII grossly intact. Alert and oriented x3. Psych: appropriate mood and affect. Objective Labs 09/28/24 04:52 09/28/24 04:52 Labs: Laboratory Results - last 24 hr 09/25/24 09/28/24 12:25 04:52 WBC 7.9 RBC 3.72 L Hgb 9.8 L Hct 31.3 L MCV 84 MCH 26.3 MCHC 31.3 RDW Std Deviation 48.0 H Plt Count 283 D Neut % (Auto) 55 Lymph % (Auto) 33 [place] % (Auto) 11 Eos % (Auto) 1 Baso % (Auto) 0 Neut # (Auto) 4.4 Lymph # (Auto) 2.6 [place] # (Auto) 0.9 H Eos # (Auto) 0.1 Baso # (Auto) 0.0 Immature Gran # (Auto) 0.02 H Absolute Nucleated RBC 0.00 Immature Gran % 0 Nucleated RBC % 0 Sodium 137 Potassium 3.6 D Chloride 102 Carbon Dioxide 27.0 Anion Gap 8 BUN 14 Creatinine 0.8 Estim Creat Clear Calc 74.8 eGFR > 60 BUN/Creatinine Ratio 18 Glucose 99 Calculated Osmolality 274 L Calcium 8.6 Corrected Calcium 8.7 Phosphorus 2.7 Magnesium 1.8 Total Bilirubin 0.3 AST 22 ALT 12 Alkaline Phosphatase 65 Total Protein 6.7 Albumin 3.9 Globulin 2.8 Albumin/Globulin Ratio 1.4 Crossmatch See Detail Quality Measures Quality Measures VTE prophylaxis Assessment & Plan Assessment Current Active Medications: Generic Name Dose Route Start Last Admin Trade Name Freq PRN Reason Stop Dose Admin Amlodipine Besylate 10 mg 09/27/24 09:00 09/28/24 09:27 Amlodipine Besylate 5 Mg Tablet PO 10/27/24 08:59 10 mg QDAY RAFY Administration Clonazepam 1 mg 09/27/24 10:17 09/28/24 09:26 Clonazepam 0.5 Mg Tablet PO 10/02/24 20:59 1 mg BID PRN Administration anxiety Duloxetine HCl 30 mg 09/26/24 21:00 09/27/24 20:47 Duloxetine Hcl 30 Mg Capsule PO 10/26/24 20:59 30 mg HS RAFY Administration Levothyroxine Sodium 125 mcg 09/27/24 06:00 09/28/24 05:32 Levothyroxine Sodium 125 Mcg Tablet PO 10/27/24 05:59 125 mcg ACBR RAFY Administration Lisinopril 20 mg 09/27/24 09:00 09/28/24 09:27 Lisinopril 20 Mg Tablet PO 10/27/24 08:59 20 mg QDAY RAFY Administration Morphine Sulfate 2 mg 09/28/24 09:19 Morphine Sulf Inj 10 Mg/Ml Vial IVP 10/02/24 20:52 Q4HR PRN Pain 7-10 Ondansetron HCl 4 mg 09/26/24 20:20 Ondansetron Inj 2 Mg/Ml Inj 2 Ml IV 10/26/24 20:19 Q6HR PRN NAUSEA OR VOMITING Tramadol HCl 100 mg 09/27/24 14:12 09/28/24 09:27 Tramadol Hcl 50 Mg Tablet PO 10/02/24 09:55 100 mg Q4HR PRN Administration PAIN Plan Ms. Stevens is a 63-year-old female with past medical history significant for type 2 diabetes, hypertension, hyperlipidemia, hypothyroidism and anxiety disorder is status post left total knee replacement surgery. #Status post knee replacement surgery, left, post op D2. -Patient underwent left knee replacement surgery with Dr. Julien on 09/26. Plan: -Physical therapy ordered. -Pain control as needed with tramadol and morphine. -DVT prophylaxis as per orthopedic surgeon. #Primary hypertension. #Hyperlipidemia, ruled out. -Patient does not take any statins for hyperlipidemia. -Lipid panel within normal limits. Plan: -home amlodipine and lisinopril resumed. #Type 2 diabetes mellitus. -A1c 5.6 on 09/27. Plan: -Resumed home metformin. #Hypothyroidism. -TSH 3.15 on 09/27. Plan: -Resumed home levothyroxine. #Anxiety disorder. Plan: -resumed home clonazepam. -Resumed home duloxetine at bedtime. Health Maintenance: [facility] Prophylaxis: as per orthopedic surgeon preference GI Prophylaxis: not indicated Diet: carbohydrate consistent Lines: Peripheral lines Code status: Full Assessment and plan discussed with my attending physician Dr. Guajardo. Zeeshan Randhawa MD, PGY 2. Disclaimer: This note was dictated by speech recognition. Minor errors in senior compensation analyst may be present due to voice recognition software. Attending Provider Attestation/Addendum I attest that I was physically present for the evaluation, physical examination, lab and imaging review of the patient with the residents. I discussed the case with the residents and agree with the findings and plans of care as documented above. At bedside today, patient appears comfortable. States that her pain has been well-controlled with analgesics. Continues to be on amlodipine, lisinopril, metformin, levothyroxine, clonazepam and diltiazem for hypertension, diabetes, hypothyroidism and anxiety disorder. Underwent physical therapy yesterday, recommended DC to home with front wheeled walker. We will continue to follow patient with you until she remains in the hospital. DVT prophylaxis and DC planning as per orthopedics. Jose Guajardo MD
--- NOTE | 2024-09-28 20:11 | PC.NURSE ---
MD Verdugo put order for discahrge order, pt unable to ambulate today, and family asking pt to go SNF, per MD will talked to the pt in AM.
[2024-09-28] MEDS: DULoxetine HCL 30 MG CAPSULE PO (20:41)
[2024-09-28] MEDS: ASPIRIN EC 81 MG TABEC PO (20:41)
[2024-09-29] VITALS (9 sets, daily range): BP systolic 96–119; BP diastolic 60–69; PULSE 102–116; RESP 16–20; TEMP 36.1–36.6; O2SAT 90–97; BMI 36.8; BMI 12.0
[2024-09-29] MEDS: MORPHINE SULF INJ 10 MG/ML VIAL 2 MG IVP (00:21)
[2024-09-29] MEDS: LEVOTHYROXINE SODIUM 125 MCG TABLET PO (05:13)
[2024-09-29 05:33] LABS: Basophils % (Auto) 0 % (0-2.5); Eosinophils # (Auto) 0.1 Thou/mm3 (0.0-0.5); Eosinophils % (Auto) 1 % (0-10); Hematocrit 31.5 % (36.0-46.0); Hemoglobin 9.7 g/dL (12.0-16.0); Immature Granulocytes % (Auto) 1 % (0-0); Immature Granulocytes Auto 0.08 Thou/mm3 (0.00-0.00); Lymphocytes # (Auto) 3.5 Thou/mm3 (1.0-4.8); Lymphocytes % (Auto) 34 % (10-50); Mean Corpuscular HGB Conc 30.8 g/dl (31.0-37.0); Mean Corpuscular Hemoglobin 26.3 pg (25.0-35.0); Mean Corpuscular Volume 85 fL (80-100); Monocytes % (Auto) 10 % (0-12); Neutrophils # (Auto) 5.6 Thou/mm3 (1.8-7.7); Neutrophils % (Auto) 54 % (37-80); Nucleated Red Blood Cell % 0 /100 WBC (0); Platelet Count 346 Thou/mm3 (140-440); RDW Standard Deviation 49.1 fL (36.4-46.3); Red Blood Count 3.69 Miln/mm3 (4.00-5.20); White Blood Count 10.4 Thou/mm3 (3.6-11.0)
[2024-09-29 06:06] LABS: Alanine Aminotransferase 72 U/L (10-49); Albumin, Serum 3.9 gm/dL (3.4-4.8); Albumin/Globulin Ratio 1.3 (1.2-2.2); Anion Gap 9 (7-16); Aspartate Amino Transferase 106 U/L (0-34); Bilirubin,Total 0.4 mg/dL (0.3-1.2); Blood Urea Nitrogen 23 mg/dL (9-23); Calcium 8.6 mg/dL (8.3-10.6); Calcium (Corrected) 8.7 mg/dL (8.5-10.1); Chloride 97 mMol/L (98-107); Globulin 2.9 gm/dL (2.3-3.5); Glucose 104 mg/dL (74-106); Magnesium 1.8 mg/dL (1.6-2.6); Osmolality,Calculated 271 (275-295); Phosphorous 4.7 mg/dL (2.4-5.1); Potassium 4.5 mMol/L (3.4-5.1); Sodium 134 mMol/L (136-145); Total Protein 6.8 gm/dL (5.7-8.2)
[2024-09-29 06:07] LABS: Alkaline Phosphatase 84 U/L (46-116); BUN/Creatinine Ratio 12 Ratio (12-20); Creatinine (Component) 1.9 mg/dL (0.6-1.3); Estimated Creatinine Clearance 31.5 mL/min (>60); eGFR 30 See Note
[2024-09-29] MEDS: traMADol HCL 50 MG TABLET 100 MG PO (09:21)
[2024-09-29] MEDS: ASPIRIN EC 81 MG TABEC PO ×2 (09:21→20:22)
[2024-09-29] MEDS: ONDANSETRON INJ 2 MG/ML INJ 2 ML 4 MG IV (10:51)
--- NOTE | 2024-09-29 11:09 | PC.NURSE ---
patient felt dizzy and nauseas after working with physical therapy, administered zofran ivp. Dr. Rangel and team at bedside
[2024-09-29] MEDS: SENNA/DOCUSATE SOD 1 TAB TABLET PO (11:41)
[2024-09-29] MEDS: POLYETHYLENE GLYCOL 17 GM PACKET PO (11:42)
[2024-09-29] MEDS: SODIUM CHLORIDE 0.9% 1000 ML 1,000 ML 80 ML IV (11:43)
[2024-09-29] MEDS: HYDROmorphone INJ 2 MG/ML VIAL 0.5 MG IVP (11:47)
--- NOTE | 2024-09-29 13:20 | PC.NURSE ---
DR. DOUGLAS AT BEDSIDE WITH PATIENT, NOTIFIED OF PATIENT PAIN AND NAUSEA DURING PHYSICAL THERAPY EVALUATION.
[2024-09-29 14:17] LABS: Albumin, Serum 3.8 gm/dL (3.4-4.8); Anion Gap 10 (7-16); BUN/Creatinine Ratio 13 Ratio (12-20); Blood Urea Nitrogen 28 mg/dL (9-23); Calcium 8.1 mg/dL (8.3-10.6); Calcium (Corrected) 8.3 mg/dL (8.5-10.1); Carbon Dioxide 24.6 mMol/L (20.0-31.0); Chloride 98 mMol/L (98-107); Creatinine (Component) 2.2 mg/dL (0.6-1.3); Estimated Creatinine Clearance 27.2 mL/min (>60); Glucose 125 mg/dL (74-106); Osmolality,Calculated 272 (275-295); Sodium 133 mMol/L (136-145); eGFR 25 See Note
[2024-09-29] MEDS: HYDROcodone/APAP 5/325 TABLET 1 TAB PO (15:11)
--- NOTE | 2024-09-29 15:57 | PC.SS ---
Patient Shari Stevens is a 63 Year old female admitted for Total Knee replacement. SS met with patient at bedside to discuss discharge plan. Patient reports she lives at home with family. Patient's , Kike Coombs is medical decision maker [phone]. Patient reports that prior to admission she was able to ambulate, patient was also able to complete all ADL's independently. Choice of pharmacy is [facility]. PCP is Addi Senior. At time of discharge patient reports she will discharge home, family will provide transportation. Next of kin, , Kike Coombs Discharge plan: [facility]
--- NOTE | 2024-09-29 18:40 | ESPR_ITS ---
<Statement entered by Zeeshan Randhawa MD - 10/01/24 07:57> Senior Resident Attestation: I supervised/discussed management plan with news intern physician Dr. Rangel, and was involved in the care of this patient. I personally saw and examined the patient and discussed the assessment and plan with the entire medicine team, including my attending. I agree with the assessment and plan as documented. Patient's care was discussed with attending physician, Dr. Guajardo. Zeeshan Randhawa MD PGY-2. Documentation for date of: 09/29/24 Subjective Subjective Interval history: No acute overnight events reported. Patient seen and examined at bedside this morning. Patient is grimacing in pain her last dose of IV morphine was at midnight patient has not received any pain control since then this morning. Patient is unable to tolerate physical therapy due to pain. Patient states that she has an significant amount of pain and the only thing that helps when the pain gets to this level is the morphine. Patient's partner is at bedside who stated that she he has decreased oral intake including not drinking enough water significant labs this morning include creatinine 1.9, GFR 30. Patient is encouraged to drink more water 1 L of fluid NS is ordered and will repeat renal panel later in the afternoon. Patient's pain control is changed to [place] fives and discontinue tramadol as well as morphine. Exam Vital Signs Temp Pulse Resp BP Pulse Ox O2 Del Method O2 Flow Rate 97.0 F 114 H 18 104/60 92 L Room Air 2 09/29/24 16:00 09/29/24 16:00 09/29/24 16:00 09/29/24 16:00 09/29/24 16:09/29/24 16:09/29/24 06:43 Narrative Exam GENERAL: A&Ox3 . Awake, Not in acute distress, well groomed, calm, saturating on room air NEURO: no focal neurological deficits notes HEENT: Atraumatic, Normocephalic. mucous membranes moist. Eyes open, symmetrical, & clear HEART: Normal Heart Sounds LUNGS: Clear to auscultation with no wheezing or crackles. ABDOMEN: soft, non-distended, non-tender, bowel sounds heard, no guarding or rebound tenderness SKIN: No Rash or ecchymoses EXTREMITIES: No edema, tenderness, able to move all 4 extremities, pedal pulses palpated, left knee is in surgical wrap appears to dry and clean Objective Labs 09/30/24 04:30 09/30/24 04:30 Labs: Laboratory Results - last 24 hr 09/29/24 09/29/24 05:12 13:07 WBC 10.4 RBC 3.69 L Hgb 9.7 L Hct 31.5 L MCV 85 MCH 26.3 MCHC 30.8 L RDW Std Deviation 49.1 H Plt Count 346 D Neut % (Auto) 54 Lymph % (Auto) 34 [place] % (Auto) 10 Eos % (Auto) 1 Baso % (Auto) 0 Neut # (Auto) 5.6 Lymph # (Auto) 3.5 [place] # (Auto) 1.0 H Eos # (Auto) 0.1 Baso # (Auto) 0.0 Immature Gran # (Auto) 0.08 H Absolute Nucleated RBC 0.00 Immature Gran % 1 H Nucleated RBC % 0 Sodium 134 L 133 L Potassium 4.5 D 4.0 D Chloride 97 L 98 Carbon Dioxide 28.0 24.6 Anion Gap 9 10 BUN 23 28 H Creatinine 1.9 H D 2.2 H Estim Creat Clear Calc 31.5 L 27.2 L eGFR 30 L 25 L BUN/Creatinine Ratio 12 13 Glucose 104 125 H Calculated Osmolality 271 L 272 L Calcium 8.6 8.1 L Corrected Calcium 8.7 8.3 L Phosphorus 4.7 5.0 Magnesium 1.8 Total Bilirubin 0.4 AST 106 H ALT 72 H Alkaline Phosphatase 84 D Total Protein 6.8 Albumin 3.9 3.8 Globulin 2.9 Albumin/Globulin Ratio 1.3 Quality Measures Quality Measures VTE prophylaxis Assessment & Plan Assessment Current Active Medications: Generic Name Dose Route Start Last Admin Trade Name Freq PRN Reason Stop Dose Admin Hydrocodone Bitart/Acetaminophen 1 tab 09/29/24 13:46 09/29/24 15:11 Hydrocodone/Apap 5/325 Tablet PO 10/04/24 13:45 1 tab Q6HR PRN Administration PAIN Amlodipine Besylate 10 mg 09/27/24 09:00 09/29/24 09:25 Amlodipine Besylate 5 Mg Tablet PO 10/27/24 08:59 Not Given QDAY RAFY Aspirin 81 mg 09/28/24 21:00 09/29/24 09:21 Aspirin Ec 81 Mg [place] PO 10/28/24 20:59 81 mg BID RAFY Administration Clonazepam 1 mg 09/27/24 10:17 09/28/24 09:26 Clonazepam 0.5 Mg Tablet PO 10/02/24 20:59 1 mg BID PRN Administration anxiety Duloxetine HCl 30 mg 09/26/24 21:00 09/28/24 20:41 Duloxetine Hcl 30 Mg Capsule PO 10/26/24 20:59 30 mg HS RAFY Administration Sodium Chloride 1,000 mls @ 80 mls/hr 09/29/24 11:05 09/29/24 11:43 Ns IV 09/29/24 23:34 80 mls/hr .[id number] RAFY Administration Levothyroxine Sodium 125 mcg 09/27/24 06:00 09/29/24 05:13 Levothyroxine Sodium 125 Mcg Tablet PO 10/27/24 05:59 125 mcg ACBR RAFY Administration Lisinopril 20 mg 09/27/24 09:00 09/29/24 09:26 Lisinopril 20 Mg Tablet PO 10/27/24 08:59 Not Given QDAY RAFY Ondansetron HCl 4 mg 09/26/24 20:20 09/29/24 10:51 Ondansetron Inj 2 Mg/Ml Inj 2 Ml IV 10/26/24 20:19 4 mg Q6HR PRN Administration NAUSEA OR VOMITING Sennosides 1 tab 09/29/24 11:05 Senna/Docusate Sod 1 Tab Tablet PO 10/29/24 11:04 QDAY PRN CONSTIPATION Protocol Plan Ms. Stevens is a 63-year-old female with past medical history significant for type 2 diabetes, hypertension, hyperlipidemia, hypothyroidism and anxiety disorder is status post left total knee replacement surgery. #Status post knee replacement surgery, left -Patient underwent left knee replacement surgery with Dr. Julien on 09/26 -Physical therapy ordered -Pain control as needed ordered -DVT prophylaxis as per orthopedic surgeon #Acute kidney injury -CMP reveal creatinine 1.9 and FGR 30. Baseline Cr is 0.8 -Likely due to dehydration as pt has poor oral intake -Will continue to money kidney function with repeat renal panel -1L bolus NS ordered -Avoid nephrotoxic and renally dose meds #Primary hypertension #Hyperlipidemia -Resumed home amlodipine and lisinopril for tomorrow -Patient does not take any statins for hyperlipidemia -Lipid panel within normal limits #Type 2 diabetes mellitus -A1c 5.6 on 09/27 -Resumed home metformin #Hypothyroidism -TSH 3.15 on 09/27 -Resumed home levothyroxine #Anxiety disorder -resumed home clonazepam -Resumed home duloxetine at bedtime Health Maintenance Disposition: Medsurg DVT Prophylaxis: Aspirin 81mg BID GI Prophylaxis: not indicated Diet: carbohydrate consistent Lines: Peripheral lines Code status: Full Assessment and plan discussed with my senior Dr. Randhawa attending physician Dr. Casandra Rangel (PGY-1)- Internal medicine resident Attending Provider Attestation/Addendum I attest that I was physically present for the evaluation, physical examination, lab and imaging review of the patient with the residents. I discussed the case with the residents and agree with the findings and plans of care as documented above. Jose Guajardo MD
[2024-09-29] MEDS: DULoxetine HCL 30 MG CAPSULE PO (20:23)
[2024-09-29] MEDS: clonazePAM 0.5 MG TABLET 1 MG PO (22:04)
[2024-09-30] VITALS (9 sets, daily range): BP systolic 108–133; BP diastolic 61–91; PULSE 102–110; RESP 17–21; TEMP 36.2–36.8; O2SAT 92–97
[2024-09-30] MEDS: HYDROcodone/APAP 5/325 TABLET 1 TAB PO ×4 (02:02→20:10)
[2024-09-30] MEDS: LEVOTHYROXINE SODIUM 125 MCG TABLET PO (05:10)
[2024-09-30 05:49] LABS: Basophils % (Auto) 1 % (0-2.5); Eosinophils # (Auto) 0.2 Thou/mm3 (0.0-0.5); Eosinophils % (Auto) 3 % (0-10); Hematocrit 25.4 % (36.0-46.0); Immature Granulocytes % (Auto) 1 % (0-0); Immature Granulocytes Auto 0.04 Thou/mm3 (0.00-0.00); Lymphocytes # (Auto) 2.1 Thou/mm3 (1.0-4.8); Lymphocytes % (Auto) 28 % (10-50); Mean Corpuscular HGB Conc 31.9 g/dl (31.0-37.0); Mean Corpuscular Hemoglobin 27.2 pg (25.0-35.0); Mean Corpuscular Volume 85 fL (80-100); Monocytes # (Auto) 0.6 Thou/mm3 (0.0-0.8); Monocytes % (Auto) 7 % (0-12); Neutrophils # (Auto) 4.8 Thou/mm3 (1.8-7.7); Neutrophils % (Auto) 62 % (37-80); Nucleated Red Blood Cell % 0 /100 WBC (0); Platelet Count 235 Thou/mm3 (140-440); RDW Standard Deviation 48.5 fL (36.4-46.3); Red Blood Count 2.98 Miln/mm3 (4.00-5.20); White Blood Count 7.7 Thou/mm3 (3.6-11.0)
[2024-09-30 05:51] LABS: Hemoglobin 8.1 g/dL (12.0-16.0)
[2024-09-30 06:13] LABS: Alanine Aminotransferase 55 U/L (10-49); Albumin, Serum 3.6 gm/dL (3.4-4.8); Albumin/Globulin Ratio 1.4 (1.2-2.2); Alkaline Phosphatase 83 U/L (46-116); Anion Gap 10 (7-16); Aspartate Amino Transferase 53 U/L (0-34); BUN/Creatinine Ratio 20 Ratio (12-20); Bilirubin,Total 0.4 mg/dL (0.3-1.2); Blood Urea Nitrogen 26 mg/dL (9-23); Calcium 8.1 mg/dL (8.3-10.6); Calcium (Corrected) 8.4 mg/dL (8.5-10.1); Carbon Dioxide 25.3 mMol/L (20.0-31.0); Chloride 100 mMol/L (98-107); Creatinine (Component) 1.3 mg/dL (0.6-1.3); Globulin 2.5 gm/dL (2.3-3.5); Glucose 91 mg/dL (74-106); Osmolality,Calculated 274 (275-295); Sodium 135 mMol/L (136-145); Total Protein 6.1 gm/dL (5.7-8.2); eGFR 47 See Note
[2024-09-30] MEDS: CALCIUM CARBONATE 600 MG TABLET PO (07:59)
[2024-09-30] MEDS: ASPIRIN EC 81 MG TABEC PO ×2 (08:00→20:10)
[2024-09-30] MEDS: amLODIPine BESYLATE 5 MG TABLET 10 MG PO (08:01)
[2024-09-30] MEDS: ACETAMINOPHEN 500 MG TABLET PO (09:29)
--- NOTE | 2024-09-30 16:05 | PD.RESPRO ---
Documentation for date of: 09/30/24 Subjective Subjective Interval history: No acute overnight events reported. Patient seen and examined at bedside this morning. Patient reports she does have significant improvement in her knee pain however she does not require any IV pain meds. Patient states that she has been trying to work with PT and was able to walk to the door and the windows down the hallway with the PT. Per PT eval patient will need home health PT. Patient denies any dizziness nausea or vomiting. Vitals are stable patient has remained afebrile and saturating on room air significant labs include hemoglobin 8.1, hematocrit 25.4, creatinine improved to 1.3 and calcium 8.4. Patient is medically cleared to be discharged from hospitalist side, recommendations include patient to repeat CBC and renal panel in 1 week with primary care physician after discharge. And remainder of recommendation as per Orthosurgeon. Patient has no other complaints. Exam Vital Signs Temp Pulse Resp BP Pulse Ox O2 Del Method O2 Flow Rate 98.2 F 107 H 17 112/63 92 L Room Air 2 09/30/24 12:00 09/30/24 12:00 09/30/24 12:00 09/30/24 12:00 09/30/24 12:00 09/30/24 12:00 09/29/24 06:43 Narrative Exam GENERAL: A&Ox3 . Awake, Not in acute distress, well groomed, calm, saturating on room air NEURO: no focal neurological deficits notes HEENT: Atraumatic, Normocephalic. mucous membranes moist. Eyes open, symmetrical, & clear HEART: Normal Heart Sounds LUNGS: Clear to auscultation with no wheezing or crackles. ABDOMEN: soft, non-distended, non-tender, bowel sounds heard, no guarding or rebound tenderness SKIN: No Rash or ecchymoses EXTREMITIES: No edema, tenderness, able to move all 4 extremities, pedal pulses palpated, left knee is in surgical wrap appears to dry and clean Objective Labs 09/30/24 04:30 09/30/24 04:30 Labs: Laboratory Results - last 24 hr 09/30/24 04:30 WBC 7.7 RBC 2.98 L Hgb 8.1 L Hct 25.4 L MCV 85 MCH 27.2 MCHC 31.9 RDW Std Deviation 48.5 H Plt Count 235 D Neut % (Auto) 62 Lymph % (Auto) 28 [place] % (Auto) 7 Eos % (Auto) 3 Baso % (Auto) 1 Neut # (Auto) 4.8 Lymph # (Auto) 2.1 [place] # (Auto) 0.6 Eos # (Auto) 0.2 Baso # (Auto) 0.0 Immature Gran # (Auto) 0.04 H Absolute Nucleated RBC 0.00 Immature Gran % 1 H Nucleated RBC % 0 Sodium 135 L Potassium 4.0 Chloride 100 Carbon Dioxide 25.3 Anion Gap 10 BUN 26 H Creatinine 1.3 D Estim Creat Clear Calc 46.0 L eGFR 47 L BUN/Creatinine Ratio 20 Glucose 91 Calculated Osmolality 274 L Calcium 8.1 L Corrected Calcium 8.4 L Total Bilirubin 0.4 AST 53 H ALT 55 H Alkaline Phosphatase 83 Total Protein 6.1 Albumin 3.6 Globulin 2.5 Albumin/Globulin Ratio 1.4 Quality Measures Quality Measures VTE prophylaxis Assessment & Plan Assessment Current Active Medications: Generic Name Dose Route Start Last Admin Trade Name Freq PRN Reason Stop Dose Admin Hydrocodone Bitart/Acetaminophen 1 tab 09/29/24 13:46 09/30/24 14:04 Hydrocodone/Apap 5/325 Tablet PO 10/04/24 13:45 1 tab Q6HR PRN Administration PAIN Amlodipine Besylate 10 mg 09/27/24 09:00 09/30/24 08:01 Amlodipine Besylate 5 Mg Tablet PO 10/27/24 08:59 10 mg QDAY RAFY Administration Aspirin 81 mg 09/28/24 21:00 09/30/24 08:00 Aspirin Ec 81 Mg Tabec PO 10/28/24 20:59 81 mg BID RAFY Administration Clonazepam 1 mg 09/27/24 10:17 09/29/24 22:04 Clonazepam 0.5 Mg Tablet PO 10/02/24 20:59 1 mg BID PRN Administration anxiety Duloxetine HCl 30 mg 09/26/24 21:00 09/29/24 20:23 Duloxetine Hcl 30 Mg Capsule PO 10/26/24 20:59 30 mg HS RAFY Administration Levothyroxine Sodium 125 mcg 09/27/24 06:00 09/30/24 05:10 Levothyroxine Sodium 125 Mcg Tablet PO 10/27/24 05:59 125 mcg ACBR RAFY Administration Lisinopril 20 mg 09/27/24 09:00 09/29/24 09:26 Lisinopril 20 Mg Tablet PO 10/27/24 08:59 Not Given QDAY RAFY Ondansetron HCl 4 mg 09/26/24 20:20 09/29/24 10:51 Ondansetron Inj 2 Mg/Ml Inj 2 Ml IV 10/26/24 20:19 4 mg Q6HR PRN Administration NAUSEA OR VOMITING Sennosides 1 tab 09/29/24 11:05 Senna/Docusate Sod 1 Tab Tablet PO 10/29/24 11:04 QDAY PRN CONSTIPATION Protocol Plan Ms. Stevens is a 63-year-old female with past medical history significant for type 2 diabetes, hypertension, hyperlipidemia, hypothyroidism and anxiety disorder is status post left total knee replacement surgery. #Status post knee replacement surgery, left -Patient underwent left knee replacement surgery with Dr. Julien on 09/26 -Physical therapy recommends home health PT -Pain control as needed ordered -DVT prophylaxis as per orthopedic surgeon - Aspirin 81mg BID #Acute kidney injury- improved -CMP reveal creatinine 1.9 and FGR 30. Baseline Cr is 0.8 -Likely due to dehydration as pt has poor oral intake -Will continue to money kidney function with repeat renal panel -1L bolus NS ordered -Avoid nephrotoxic and renally dose meds #Primary hypertension #Hyperlipidemia -Resumed home amlodipine and lisinopril for tomorrow -Patient does not take any statins for hyperlipidemia -Lipid panel within normal limits #Type 2 diabetes mellitus -A1c 5.6 on 09/27 -Resumed home metformin #Hypothyroidism -TSH 3.15 on 09/27 -Resumed home levothyroxine #Anxiety disorder -resumed home clonazepam -Resumed home duloxetine at bedtime Health Maintenance Disposition: Medsurg DVT Prophylaxis: Aspirin 81mg BID GI Prophylaxis: not indicated Diet: carbohydrate consistent Lines: Peripheral lines Code status: Full Assessment and plan discussed with my attending physician Dr. Casandra Rangel (PGY-1)- Internal medicine resident Attending Provider Attestation/Addendum I attest that I was physically present for the evaluation, physical examination, lab and imaging review of the patient with the residents. I discussed the case with the residents and agree with the findings and plans of care as documented above. At bedside, patient states her pain is better compared to yesterday.? She had an episode of sweating and dizziness yesterday.? Kidney function has been improving, BUN/creatinine of 26/1.3 today.? She has been working with physical therapy.? Noted to have decrease in hemoglobin from 9.7-8.1, no obvious source of bleeding. Blood pressure and glucose level have been stable.? We will follow the patient with you until the patient is in house.? Discharge planning as per discretion of orthopedics, stable from internal medicine stand point. Jose Guajardo MD
--- NOTE | 2024-09-30 17:42 | ESPR_ITS ---
RE: AMIRA LONG : 1960 DATE OF SERVICE: 09/30/2024 PROGRESS REPORT: The patient was seen by me again on 09/27/2024. The patient was in too much pain. Hemoglobin was 9.5, hematocrit is 30.5, and white cell count was 6.7. The patient was encouraged to walk. The physical therapy also talked to me and stated that the patient is not very comfortable at this point and is not walking at all or moving the knee. I talked to patient and explained that walking is extremely important. Due to pain, we decided to keep her one more day. That is the end of the discussion. DT: 12:29:38 TT: 17:40:00 Ref: [id number] - TID: [id number]
--- NOTE | 2024-09-30 17:50 | ESPR_ITS ---
RE: AMIRA LONG : 1960 DATE OF SERVICE: 09/30/2024 The patient is a status post left total knee replacement. The patient's hemoglobin was 9.8 and white cell count was 7.9. A consult from a hospitalist was also obtained. ASSESSMENT AND PLAN: The patient was not walking very well. She was complaining too much pain. However, we encouraged again to walk and to put weight on it. There is no clinical evidence of deep venous thrombosis or any other infection. White cell count was also within normal limits. Accordingly, this was made to keep her one more day due to significant pain. DT: 12:31:08 TT: 17:49:00 Ref: [id number] - TID: [id number]
[2024-09-30] MEDS: DULoxetine HCL 30 MG CAPSULE PO (20:10)
[2024-10-01] VITALS: BP 135/71; PULSE 108; RESP 20; TEMP 36.3; O2SAT 97
[2024-10-01] MEDS: HYDROcodone/APAP 5/325 TABLET 1 TAB PO ×2 (02:16→08:53)
[2024-10-01 04:00] VITALS: BP 128/68; PULSE 106; RESP 16; TEMP 36.2; O2SAT 95
[2024-10-01] MEDS: LEVOTHYROXINE SODIUM 125 MCG TABLET PO (06:34)
[2024-10-01 08:00] VITALS: BP 128/73; PULSE 101; RESP 18; TEMP 36.4; O2SAT 97
[2024-10-01 08:53] VITALS: BP 128/73; PULSE 101
[2024-10-01] MEDS: ASPIRIN EC 81 MG TABEC PO (08:53)
[2024-10-01] MEDS: amLODIPine BESYLATE 5 MG TABLET 10 MG PO (08:53)
[2024-10-01 09:57] LABS: Basophils % (Auto) 0 % (0-2.5); Eosinophils # (Auto) 0.1 Thou/mm3 (0.0-0.5); Eosinophils % (Auto) 2 % (0-10); Hematocrit 26.2 % (36.0-46.0); Immature Granulocytes % (Auto) 1 % (0-0); Immature Granulocytes Auto 0.04 Thou/mm3 (0.00-0.00); Lymphocytes # (Auto) 1.6 Thou/mm3 (1.0-4.8); Lymphocytes % (Auto) 27 % (10-50); Mean Corpuscular HGB Conc 31.7 g/dl (31.0-37.0); Mean Corpuscular Hemoglobin 26.6 pg (25.0-35.0); Mean Corpuscular Volume 84 fL (80-100); Monocytes # (Auto) 0.4 Thou/mm3 (0.0-0.8); Monocytes % (Auto) 7 % (0-12); Neutrophils # (Auto) 3.8 Thou/mm3 (1.8-7.7); Neutrophils % (Auto) 63 % (37-80); Nucleated Red Blood Cell % 0 /100 WBC (0); Platelet Count 280 Thou/mm3 (140-440); RDW Standard Deviation 46.3 fL (36.4-46.3); Red Blood Count 3.12 Miln/mm3 (4.00-5.20)
[2024-10-01 09:58] LABS: Hemoglobin 8.3 g/dL (12.0-16.0)
--- NOTE | 2024-10-01 10:12 | ESPR_ITS ---
RE: AMIRA LONG : 1960 DATE OF SERVICE: 09/29/2024 SUBJECTIVE: The patient was seen by me again on 09/29/2024. The patient was afebrile. Vital signs are stable. I was told that when they mobilized the patient, the patient went into a hypotensive attack. Hence, they are keeping her one more day. I explained that it may be due to pain medication. Accordingly, IV narcotic pain medication was withdrawn. The patient was put on [place] 5/325. The patient was also advised to be walking with the help of a physical therapist to be full weight-bear. I also advised that the patient should be mobilized again by physical therapy in the afternoon on 09/29/2024 and if she does well, she may be discharged. However, I was contacted again later on and advised that the patient may go home on 09/30/2024. A follow-up appointment is already scheduled. The patient is also advised to have oral anticoagulant medication. DT: 12:32:57 TT: 19:49:00 Ref: [id number] - TID: [id number]
[2024-10-01 10:14] LABS: Alanine Aminotransferase 42 U/L (10-49); Albumin, Serum 3.9 gm/dL (3.4-4.8); Albumin/Globulin Ratio 1.4 (1.2-2.2); Alkaline Phosphatase 86 U/L (46-116); Anion Gap 7 (7-16); Aspartate Amino Transferase 37 U/L (0-34); BUN/Creatinine Ratio 18 Ratio (12-20); Bilirubin,Total 0.5 mg/dL (0.3-1.2); Blood Urea Nitrogen 14 mg/dL (9-23); Calcium 8.7 mg/dL (8.3-10.6); Calcium (Corrected) 8.8 mg/dL (8.5-10.1); Carbon Dioxide 26.8 mMol/L (20.0-31.0); Chloride 105 mMol/L (98-107); Creatinine (Component) 0.8 mg/dL (0.6-1.3); Estimated Creatinine Clearance 74.8 mL/min (>60); Globulin 2.7 gm/dL (2.3-3.5); Glucose 127 mg/dL (74-106); Osmolality,Calculated 280 (275-295); Potassium 3.8 mMol/L (3.4-5.1); Sodium 139 mMol/L (136-145); Total Protein 6.6 gm/dL (5.7-8.2); eGFR > 60 See Note
--- NOTE | 2024-10-01 11:47 | PC.SS ---
SS Follow up note; SS met with patient in regards to discharge plan, patient will discharge home with HH today, No preference in HH agency.
[2024-10-01 12:00] VITALS: BP 140/72; PULSE 119; RESP 18; TEMP 36.4; O2SAT 94
--- NOTE | 2024-10-01 13:53 | ESDS_ITS ---
<Statement entered by Genesis Aguilera DO - 10/02/24 07:46> I, Genesis Aguilera DO, attest that I was physically present for the [place]bour portions of the service and evaluated the patient with the resident and I reviewed and discussed the case with the resident and agree with the resident's findings and plans of care as documented above Planned Discharge Date 10/01/24 DS: Providers Provider Date of admission: 09/26/24 20:20 Primary care physician: Addi Schreiber Admitting Provider: Nahum Julien MD Attending Provider on Admission: Genesis Aguilera DO Consults: 09/26/24 20:20 Consult to Adult Hospitalist Urgent Comment: Consulting Provider: Jose Guajardo RES 09/27/24 13:39 Referral Physical Therapy Routine Comment: PT to mobilize. Both legs full weight bear Physician Instructions: Mobilize full weight bearing Attending Provider on DC: Fabrizio Rangel MD Discharging Provider: Fabrizio Rangel MD DS: Diagnosis Problem List Completed Was Problem List Reviewed/Reconciled?: Yes Hospital Course Hospital Course Hospital course: Ms. Stevens is a 63-year-old female with past medical history significant for type 2 diabetes, hypertension, hyperlipidemia, hypothyroidism and anxiety disorder is status post left total knee replacement surgery on 09/26/24 at [facility]. Medicine team was consulted to manage patient's medical conditions during hospitalization. Patient's hospital stay was extended due to pain which was not being controlled with medications. Patient required IV pain meds and was unable to work with physical therapy due to pain. Patient is now hemodynamically stable, creatinine has improved, patient is tolerating oral diet and pain is well-controlled with oral medications patient also under went PT evaluation and they recommended home health PT and patient is cleared to be discharged from orthopedic surgery and medicine team. Patient is discharged to self-care with home health physical therapy. Patient is advised if her symptoms worsen or return to promptly return to the ED. Discharge Recommendations -Follow up with your primary care within 1 week after discharge -Repeat CBC and CMP with in 1 week after discharge -Follow up with Orthopedic surgeon Dr. Julien within 1 week -For pain you may take over the counter Tylenol -Continue all your medications as prescribed -If your symptoms return or worsen, promptly return to the ED Hospitalization Diagnosis #Status post knee replacement surgery, left #Acute kidney injury- improved #Primary hypertension #Hyperlipidemia #Type 2 diabetes mellitus #Hypothyroidism #Anxiety disorder Assessment and plan discussed with my attending physician Dr. Willy Rangel (PGY-1)- Internal medicine resident Time Spent with Patient Time attestation: Total time spent providing and/or coordinating discharge services: Time spent: Greater than 30 minutes Quality: VTE Deep Vein Thrombosis/Pulmonary Embolism Present on Admission: No Home Health Home Health Referral Orders: 09/30/24 15:01 Home Health Referral Routine Reason For Exam: s/p knee replacement Home-Bound The patient must either because of illness or injury, need the aid of supportive devices such as crutches, canes, wheelchairs, and walkers; the use of special transpo rtation; or the assistance of another person in order to leave their place of residence; OR have a condition such that leaving his or her home is medically contraindicated. In addition, the patient also meets the following criteria: patient is normally unable to leave the home and leaving home requires considerable taxing effort. Addendum to Home Health Certification Practitioner's Certification: I certify that the patient has been under my care in the hospital and the care of attending physician (see below). We had a [id number] encounter on (see date below). My clinical findings indicate that the patient is home bound per the above criteria and the Home Health Services noted in these orders are medically necessary. The primary reason for the [id number] encounter is related to the fact that the patient requires home health services. Date Certifying [id number] Physician Encounter: 09/25/24 Physician's Name who will Assume Oversight for Services: Addi Senior Physician's Phone No.who will Assume Oversight for Service: SENIOR [employer] TECHNICIAN - Community Resources: No PT to Evaluate: Yes PT to evaluate and provide a treatmnet plan to increase patient's mobility and strength. Wound Care: No IV Therapy: No RN Safety Evaluation: Yes RN to evaluate and create a plan of care that will produce positive outcomes. Palliative Treatment: No Palliative treatment and evaluate the need for hospice. Home Health Aide - Personal Care: No Home Health Aide to assist with any ADL's. Exam Vital Signs Temp Pulse Resp BP Pulse Ox O2 Del Method O2 Flow Rate 97.6 F 101 H 18 128/73 97 Nasal Cannula 2 10/01/24 08:00 10/01/24 08:53 10/01/24 08:00 10/01/24 08:53 10/01/24 08:00 10/01/24 08:00 10/01/24 08:00 Narrative Exam GENERAL: A&Ox3 . Awake, Not in acute distress, well groomed, calm, saturating on room air NEURO: no focal neurological deficits notes HEENT: Atraumatic, Normocephalic. mucous membranes moist. Eyes open, symmetrical, & clear HEART: Normal Heart Sounds LUNGS: Clear to auscultation with no wheezing or crackles. ABDOMEN: soft, non-distended, non-tender, bowel sounds heard, no guarding or rebound tenderness SKIN: No Rash or ecchymoses EXTREMITIES: No edema, tenderness, able to move all 4 extremities, pedal pulses palpated, left knee is in surgical wrap appears to dry and clean Discharge Plan Plan Patient Disposition: Home w/HOME HEALTH Patient condition on transfer: Stable Care Plan Goals: -Follow up with your primary care within 1 week after discharge -Repeat CBC and CMP with in 1 week after discharge -Follow up with Orthopedic surgeon Dr. Julien within 1 week -For pain you may take over the counter Tylenol -Continue all your medications as prescribed -If your symptoms return or worsen, promptly return to the ED Prescriptions/Referrals Prescriptions/Med Rec: New aspirin [Ecotrin Low Strength] 81 mg Tablet,Delayed Release (Dr/Ec) 81 mg PO BID Qty: 60 0RF Continued lisinopril 10 MG tablet 20 mg PO QDAY Qty: 0 metformin 500 mg Tablet 500 mg PO DAILY pregabalin [Lyrica] 75 mg Capsule 75 mg PO TID cetirizine [Zyrtec] 10 mg Tablet 10 mg PO QDAY clonazepam [Klonopin] 0.5 mg Tablet 1 mg PO BID amlodipine 5 mg Tablet 10 mg PO QDAY levothyroxine 125 mcg tablet 125 mcg PO DAILY Patient Comments: take 1 tablet by mouth once daily duloxetine 30 mg capsule,delayed release(DR/EC) 30 mg PO HS Patient Comments: take 1 capsule by mouth once daily tramadol 50 mg tablet 100 mg PO TID Referrals: Addi Senior [Primary Care Provider] - Patient/Caregiver Discharge Instructions Discharge Activity: as per physical therapy Education Materials: Total Knee Replacement Print Language: Sinhala Stand Alone Forms: [employer] Info., Patient Portal Info Letter Discharge Order Discharge Orders: Discharge (Routine); Ordered 10/01/24 Ordered By: Adonay Kelley Quality Discharge Quality Measures VTE prophylaxis
--- NOTE | 2024-10-01 14:01 | PC.NURSE ---
Per Dr. Julien nothing for patient to do regarding dressing changes to left knee, RN able to remove stretch bandage and apply new one.
--- NOTE | 2024-10-01 17:51 | PC.CM ---
[facility] will open patient on 10/02.
--- NOTE | 2024-10-07 14:11 | PD.ANESPROG ---
Documentation for date of: 10/07/24 POST ANESTHESIA NOTE: Patient had GETA and L femoral nerve block for L TKA on 09/26/24. I saw her post op on the floor and she was alert and calm, seated up in bed, and denied any problems from anesthesia. This note is late entry. Best Pryor MD Anesthesia Progress Note Progress Note Most recent Vital Signs: Last Vital Signs Temp 97.6 F 10/01/24 12:00 Pulse 119 H 10/01/24 12:00 Resp 18 10/01/24 12:00 BP 140/72 H 10/01/24 12:00 Pulse Ox 94 L 10/01/24 12:00 O2 Del Method Room Air 10/01/24 12:00 O2 Flow Rate 2 10/01/24 08:00
== END 2024-10-01 14:07 | disposition home health service (06) | DRG 326 ==
LOC: S3NX 20:29
PROVIDERS: Anesthesiology; Student in an Organized Health Care Education/Training Program; Admitting Provider Orthopaedic Surgery; PCP Physician Assistant; Referring Provider Orthopaedic Surgery; Visit Provider Internal Medicine
PROC: 0SRD0J9 Replacement of Left Knee Joint with Synthetic Substitute, Cemented, Open Approach (ICD-10-PCS; principal; 2024-09-26 11:00)
DX: M17.12 Unilateral primary osteoarthritis, left knee (principal); E11.9 Type 2 diabetes mellitus without complications; I10 Essential (primary) hypertension; E78.5 Hyperlipidemia, unspecified; N17.9 Acute kidney failure, unspecified; E03.9 Hypothyroidism, unspecified; M21.169 Varus deformity, not elsewhere classified, unspecified knee; I95.9 Hypotension, unspecified; F41.9 Anxiety disorder, unspecified; Z87.891 Personal history of nicotine dependence; Z90.710 Acquired absence of both cervix and uterus; Z98.84 Bariatric surgery status; Z79.84 Long term (current) use of oral hypoglycemic drugs
CPT/HCPCS: 36415; 73562; 80053; 80061; 80069; 83036; 83735; 84100; 84443; 85025; 85610; 85730; 86850; 86900; 86901; 86923; 87081; 93005; 94664; 97163; A4217; C1713; C1776; J0689; J0690; J1100; J1580; J2250; J2270; J2371; J2405; J2704; J2795; J3010; J3490; J7030; J7120; A9270; J1805

== ENCOUNTER 2024-12-11 11:58 | Inpatient (IN) | payer MEDICAID, SELFPAY ==
--- NOTE | 2024-12-11 12:31 | XR_ITS ---
Examination: Left knee 2 views Technique one AP lateral left knee 2 views Date and time: December 11, thousand 25, 1300 hours INDICATIONS: Left knee surgery September 26, 2024, knee pain FINDINGS: Severe osteopenia Total left knee arthroplasty. Satisfactory alignment. Moderate knee effusion Soft tissue swelling prepatellar IMPRESSION: Total left knee arthroplasty with satisfactory alignment No loosening of the prosthetic components No fracture
[2024-12-11 12:42] VITALS: BP 122/76; PULSE 73; RESP 18; TEMP 36.4; O2SAT 96; BMI 28.7
--- NOTE | 2024-12-11 12:59 | PD.EDLOWEX ---
Lower Extremity Injury RME/HPI General Chief Complaint: Extremity Injury, Lower Stated Complaint: Left knee infected Time Seen by Provider: 12/11/24 12:24 Arrival date/time: 12/11/24 11:58 RME / HPI RME / HPI Narrative: 64-year-old female patient with significant history of hypertension diabetes mellitus, was sent to us by her orthopedic surgeon for possible infection of the right knee status post total knee replacement. Patient had a total knee replacement done about 2 months ago. For the last 1 week patient noticed redness and puslike drainage anterior knee, patient also complained of on and off low-grade fever and chills. Patient is ambulatory but with pain. Denies any other complaints patient is not taking any blood thinner. Related Data Home Medications ?Medication ?Instructions ?Recorded ?Confirmed lisinopril 10 mg tablet 20 mg PO QDAY #0 tabs 03/02/15 09/26/24 metformin 500 mg tablet 500 mg PO DAILY 07/21/18 09/26/24 pregabalin 75 mg capsule (Lyrica) 75 mg PO TID 07/21/18 09/26/24 amlodipine 5 mg tablet 10 mg PO QDAY 10/12/23 09/26/24 cetirizine 10 mg tablet (Zyrtec) 10 mg PO QDAY 10/12/23 09/26/24 clonazepam 0.5 mg tablet (Klonopin) 1 mg PO BID 10/12/23 09/26/24 duloxetine 30 mg capsule,delayed 30 mg PO HS 10/12/23 09/26/24 release levothyroxine 125 mcg tablet 125 mcg PO DAILY 10/12/23 09/26/24 tramadol 50 mg tablet 100 mg PO TID 10/12/23 09/26/24 Previous Rx's ?Medication ?Instructions ?Recorded aspirin 81 mg tablet,delayed 81 mg PO BID #60 tabs 10/01/24 release (Ecotrin Low Strength) Allergies Allergy/AdvReac Type Severity Reaction Status Date / Time No Known Allergies Allergy Verified 12/11/24 12:09 Review of Systems Review of Systems Narrative Review of Systems: Review of system reviewed and within normal limits except mentioned in HPI ED Exam Narrative Physical exam: VITAL SIGNS: Reviewed. GENERAL APPEARANCE: Alert and interactive, follows commands, no acute distress, HEAD AND FACE: Non-traumatic. ENT: PERRL, pink conjunctivitis, eyelid no trauma, Mucous membrane moist. NECK: Supple, nontender, no nuchal rigidity. CHEST: No tenderness, no crepitus, no paradoxical movement, no retractions. LUNGS: Clear, well ventilated, symmetric, no rales, no wheezing, no ronchi, no stridor, good breath sounds bilaterally. HEART: Regular rate, regular rhythm, no murmur, no gallops. ABDOMEN: Soft, positive bowel sounds, nondistended, no guarding, nontender, no rebound, no masses, RECTAL: Deferred. GENITAL: Deferred. NEUROLOGICAL: Gross motor function intact sensory function intact, Appropriate for age. MUSCULOSKELETAL: low back nontender, full range of motion. EXTREMITIES: Positive draining site right anterior knee, inferior aspect, with puslike drainage mild tenderness no erythema, full range of motion. SKIN: Color pink, dry, no rash, no lacerations, no abrasions, no contusions. LYMPHATICS: Deferred. Course Quality Measures none Orders Category Date Time Status Consult to Orthopedic Stat Cons 12/11/24 12:31 Ordered XR knee limited LT 2V Stat Exams 12/11/24 12:31 Completed Blood Culture (Lab) Stat Lab 12/11/24 13:30 Received CBC [CBC] Stat Lab 12/11/24 13:36 Completed CMP [Comprehensive Metabolic Panel] Stat Lab 12/11/24 13:36 Completed Lactate (Lactic Acid) Stat Lab 12/11/24 13:36 Completed PTT [Partial Thromboplastin Time] Stat Lab 12/11/24 13:36 Completed Procalcitonin Stat Lab 12/11/24 13:36 Completed Wound Culture and Gram Stain Stat Lab 12/11/24 12:53 Received Piper/Tazo 3.375 gm Premix [Zosyn] Med 12/11/24 12:29 Discontinued 3.375 gm in 50 ml IV X1 Vancomycin/Ns 1 gm Ivpb 200 ml Med 12/11/24 12:29 Discontinued IV X1 Vital Signs Vital signs: Vital Signs Temperature 97.5 F 12/11/24 12:42 Pulse Rate 73 12/11/24 12:42 Respiratory Rate 18 12/11/24 12:42 Blood Pressure 122/76 12/11/24 12:42 Pulse Oximetry (%) 96 12/11/24 12:42 Oxygen Delivery Method Room Air 12/11/24 12:42 Extremity Injury, Lower MDM Narrative MDM Narrative:: 64-year-old female patient with significant history of hypertension diabetes mellitus, was sent to us by her orthopedic surgeon for possible infection of the right knee status post total knee replacement. Patient had a total knee replacement done about 2 months ago. For the last 1 week patient noticed redness and puslike drainage anterior knee, patient also complained of on and off low-grade fever and chills. Patient is ambulatory but with pain. Denies any other complaints patient is not taking any blood thinner. CBC came back unremarkable. Except for hemoglobin of 9.7 hematocrit of 30.2 x-ray of the knee came back unremarkable. Patient received IV Zosyn and IV vancomycin. Spoke with hospitalist, who admitted the patient Patient data External records reviewed:: None Clinical information provided by:: patient and family Social determinants that could affect healthcare access:: none Patient has the following chronic illnesses:: Diabetes hypertension How is presenting disease/condition affected by chronic disease/condition?: exacerbated by Evaluation data The following diagnostics were reviewed and interpreted by me:: lab results, radiology exam(s) and other (specify) Lab and/or radiology exams considered but not ordered:: None Interpretation Summary: See results MDM Medications / Prescriptions Medications or Prescriptions considered but not ordered:: None Medication administrations:: Medication Administration History Discontinued Medications Vancomycin/Sodium Chloride (Vancomycin/Ns 1 Gm Ivpb) 200 mls @ 120 mls/hr IV X1 ONE Stop: 12/11/24 14:08 Piperacillin/Tazobactam/Dextrose (Zosyn) 3.375 gm in 50 mls @ 100 mls/hr IV X1 ONE Stop: 12/11/24 12:58 Vancomycin, Zosyn Consultations Consultation(s) initiated? (list below): Yes Consultation #1 (Physician, Specialty, Details): Dr Julien orthopedic surgeon thank you Diagnosis Extremity Injury, Lower Differential Diagnosis: other (Infected knee status post knee replacement) Most likely diagnosis given after review of the tests above:: Infected knee status post knee replacement, diabetes mellitus Admission Indicated Admission indicated?: not indicated Admission Request Was there a request for admission?: Yes Admission Attestation Admission request attestation: Discussed case with [] from Hospitalist service regarding admission. Discussed patients ED course, exam findings, labs, and radiology results. The Hospitalist [agrees,declines] to accept the patient for admission. Disposition Plan Disposition Plan: Admit Discharge Plan Plan Patient Disposition: Admit Acute Care w/in Hospital Discharge Disposition comment: Stable Prescriptions/Referrals Prescriptions/Med Rec: No Action lisinopril 10 MG tablet 20 mg PO QDAY Qty: 0 metformin 500 mg Tablet 500 mg PO DAILY pregabalin [Lyrica] 75 mg Capsule 75 mg PO TID cetirizine [Zyrtec] 10 mg Tablet 10 mg PO QDAY clonazepam [Klonopin] 0.5 mg Tablet 1 mg PO BID amlodipine 5 mg Tablet 10 mg PO QDAY levothyroxine 125 mcg tablet 125 mcg PO DAILY Patient Comments: take 1 tablet by mouth once daily duloxetine 30 mg capsule,delayed release(DR/EC) 30 mg PO HS Patient Comments: take 1 capsule by mouth once daily tramadol 50 mg tablet 100 mg PO TID aspirin [Ecotrin Low Strength] 81 mg Tablet,Delayed Release (Dr/Ec) 81 mg PO BID Qty: 60 0RF Referrals: Addi Senior [Primary Care Provider] - In 1 week Problem List Clinical Impression: Infected prosthetic knee joint Patient/Caregiver Discharge Instructions Discharge Activity: activity as tolerated Education Materials: Preventing Surgical Site Infections Print Language: Sinhala Stand Alone Forms: [employer] Award Info., Patient Portal Info Letter
[2024-12-11 13:51] LABS: Lactate (Lactic Acid) 1.4 mMol/L (0.4-2.0)
[2024-12-11 13:52] LABS: Basophils # (Auto) 0.1 Thou/mm3 (0.0-0.2); Basophils % (Auto) 1 % (0-2.5); Eosinophils # (Auto) 0.1 Thou/mm3 (0.0-0.5); Eosinophils % (Auto) 2 % (0-10); Hematocrit 30.2 % (36.0-46.0); Hemoglobin 9.7 g/dL (12.0-16.0); Immature Granulocytes % (Auto) 0 % (0-0); Immature Granulocytes Auto 0.02 Thou/mm3 (0.00-0.00); Lymphocytes # (Auto) 2.6 Thou/mm3 (1.0-4.8); Lymphocytes % (Auto) 36 % (10-50); Mean Corpuscular HGB Conc 32.1 g/dl (31.0-37.0); Mean Corpuscular Hemoglobin 25.3 pg (25.0-35.0); Mean Corpuscular Volume 79 fL (80-100); Monocytes # (Auto) 0.6 Thou/mm3 (0.0-0.8); Monocytes % (Auto) 9 % (0-12); Neutrophils % (Auto) 53 % (37-80); Nucleated Red Blood Cell % 0 /100 WBC (0); Platelet Count 454 Thou/mm3 (140-440); RDW Standard Deviation 46.6 fL (36.4-46.3); Red Blood Count 3.83 Miln/mm3 (4.00-5.20); White Blood Count 7.4 Thou/mm3 (3.6-11.0)
[2024-12-11 14:14] LABS: Partial Thromboplastin Time 32.5 Seconds (22.0-36.0)
[2024-12-11 14:31] LABS: Alanine Aminotransferase 16 U/L (10-49); Albumin, Serum 4.1 gm/dL (3.4-4.8); Albumin/Globulin Ratio 1.4 (1.2-2.2); Alkaline Phosphatase 90 U/L (46-116); Anion Gap 10 (7-16); Aspartate Amino Transferase 18 U/L (0-34); BUN/Creatinine Ratio 17 Ratio (12-20); Bilirubin,Total < 0.2 mg/dL (0.3-1.2); Blood Urea Nitrogen 19 mg/dL (9-23); Calcium 9.2 mg/dL (8.3-10.6); Calcium (Corrected) 9.2 mg/dL (8.5-10.1); Carbon Dioxide 25.3 mMol/L (20.0-31.0); Chloride 107 mMol/L (98-107); Creatinine (Component) 1.1 mg/dL (0.6-1.3); Estimated Creatinine Clearance 58.8 mL/min (>60); Globulin 2.9 gm/dL (2.3-3.5); Glucose 79 mg/dL (74-106); Osmolality,Calculated 284 (275-295); Potassium 4.1 mMol/L (3.4-5.1); Procalcitonin 0.05 ng/ml (0.0-0.49); Sodium 142 mMol/L (136-145); eGFR 57 See Note
--- NOTE | 2024-12-11 17:30 | PC.NURSE ---
PATIENT PLACED IN ER BED AT THIS TIME
[2024-12-11 18:01] VITALS: BP 141/72; PULSE 71; RESP 19; TEMP 36.8; O2SAT 95
--- NOTE | 2024-12-11 18:24 | PD.RESHP ---
Documentation for date of: 12/11/24 [facility] History of Present Illness History of present illness: Ms. Carvajal is a 64-year-old female with past medical history significant for type II Beatties, hypertension, hyperlipidemia, hypothyroidism and anxiety disorder presented to the ED after noticing purulent discharge from her left knee. Patient underwent total left knee arthroplasty on September 26, [address] Julien. Patient states she went to [place] for 3 days and returned back yesterday because she had 1 week of fever and chills and left knee pain. Patient noticed purulent discharge from her knee at the site of surgery. Patient states a week before her symptoms started she had diarrhea which resolved on its own denies any nausea or vomiting. After her knee replacement surgery in September patient underwent physical therapy and states she was doing fine until a week ago. Patient cannot recall any injuries or falls. ED course: In the ED patient's blood pressure is 122 or 76, pulse 73, respirations 18 patient has remained afebrile and saturating on room air Labs are significant for hemoglobin 9.7 hematocrit 30.2, MCV 79 CMP is within normal limits In the ED patient received Zosyn and vancomycin x [address] Julien who plans to take patient to surgery tomorrow PMH: T2DM, hypertension, hyperlipidemia, hypothyroidism, anxiety disorder PSH: Right shoulder surgery, right knee surgery, bladder surgery, left knee arthroplasty SH: Patient denies any drug use or alcohol. Patient stopped smoking cigarettes 35 years ago Home meds: Lisinopril, amlodipine, metformin, levothyroxine, duloxetine, clonazepam Review of Systems Review of Systems Systems Reviewed: All systems reviewed, normal except as documented Exam Vital Signs Temp Pulse Resp BP Pulse Ox O2 Del Method 98.3 F 71 19 141/72 H 95 Room Air 12/11/24 18:01 12/11/24 18:01 12/11/24 18:01 12/11/24 18:01 12/11/24 18:01 12/11/24 18:01 Narrative Exam GENERAL: A&Ox3 . Awake, Not in acute distress NEURO: no focal neurological deficits HEENT: Atraumatic, Normocephalic. mucous membranes moist. Eyes open, symmetrical, & clear HEART: Normal Heart Sounds LUNGS: Clear to auscultation with no wheezing or crackles. ABDOMEN: soft, non-distended, non-tender, bowel sounds heard, no guarding or rebound tenderness SKIN: No Rash or ecchymoses EXTREMITIES: No edema, able to move all 4 extremities, pedal pulses palpated, Purulent discharge noted from left Knee, surgical scar is healed Results: Labs 12/12/24 04:20 12/12/24 04:20 Labs: Short CBC 12/11/24 Range/Units 13:36 WBC 7.4 (3.6-11.0) Thou/mm3 Hgb 9.7 L (12.0-16.0) g/dL Hct 30.2 L (36.0-46.0) % Plt Count 454 H (140-440) Thou/mm3 BMP 12/11/24 13:36 Sodium 142 Potassium 4.1 Chloride 107 Carbon Dioxide 25.3 BUN 19 Creatinine 1.1 Glucose 79 Calcium 9.2 Liver Function 12/11/24 Range/Units 13:36 Total Bilirubin < 0.2 L (0.3-1.2) mg/dL AST 18 (0-34) U/L ALT 16 (10-49) U/L Alkaline Phosphatase 90 (46-116) U/L Albumin 4.1 (3.4-4.8) gm/dL Quality Measures Quality Measures none Medications Home Medications and Allergies Home Medications ?Medication ?Instructions ?Recorded ?Confirmed ?Type lisinopril 10 mg tablet 20 mg PO QDAY #0 tabs 03/02/15 12/12/24 History metformin 500 mg tablet 500 mg PO DAILY 07/21/18 12/12/24 History Held on 12/12/24. Instructions: Doctor's Order pregabalin 75 mg capsule (Lyrica) 75 mg PO TID 07/21/18 12/12/24 History cetirizine 10 mg tablet (Zyrtec) 10 mg PO QDAY 10/12/23 12/12/24 History Held on 12/12/24. Instructions: Doctor's Order clonazepam 0.5 mg tablet (Klonopin) 1 mg PO BID 10/12/23 12/12/24 History duloxetine 30 mg capsule,delayed 30 mg PO HS 10/12/23 12/12/24 History release levothyroxine 125 mcg tablet 125 mcg PO DAILY 10/12/23 12/12/24 History tramadol 50 mg tablet 100 mg PO TID 10/12/23 12/12/24 History Allergies Allergy/AdvReac Type Severity Reaction Status Date / Time No Known Allergies Allergy Verified 12/11/24 12:09 Visit Medications Acetaminophen (Acetaminophen 325 Mg Tablet) 650 mg PO Q6H PRN PRN Reason: Fever >101.5 Stop: 01/10/25 18:10 Ceftriaxone Sodium/Dextrose (Rocephin/D5w 1gm Iv Premix) 1 gm in 50 mls @ 100 mls/hr IV QDAY RAFY Stop: 12/18/24 18:20 Ondansetron HCl (Ondansetron Inj 2 Mg/Ml Inj 2 Ml) 4 mg IVP Q6H PRN; Protocol PRN Reason: NAUSEA OR VOMITING Stop: 01/10/25 18:10 Pharmacy Consult (Vancomycin Pharmacy To Dose 1 Each Each) 1 each IV QDAY RAFY Stop: 01/11/25 08:59 Discontinued Medications Vancomycin/Sodium Chloride (Vancomycin/Ns 1 Gm Ivpb) 200 mls @ 120 mls/hr IV X1 ONE Stop: 12/11/24 14:08 Piperacillin/Tazobactam/Dextrose (Zosyn) 3.375 gm in 50 mls @ 100 mls/hr IV X1 ONE Stop: 12/11/24 12:58 Assessment & Plan Plan Ms. Stevens is a 63-year-old female with past medical history significant for type 2 diabetes, hypertension, hyperlipidemia, hypothyroidism and anxiety disorder. Patient is admitted to the hospital for management of infected left knee arthroplasty. #Infected left knee arthroplasty #Left knee replacement surgery, 09/26 -Patient underwent left knee replacement surgery with Dr. Julien on 09/26 -Knee Xray-Moderate knee effusion, Soft tissue swelling prepatellar -Purulent discharge noted from left Knee Plan: -Pain control ordered -Ceftriaxone started 12/11- -Vancomycin started 12/12- -Consulted orthopedic surgeon Dr. Julien #Primary hypertension #Hyperlipidemia -Resumed home lisinopril -Patient does not take any statins for hyperlipidemia #Non-Insulin dependent Type 2 diabetes -A1c 5.6 on 09/27, BG on admission 79 -Pt's home medication include metformin -WIll continue to monitor BG, and will add SSI if necessary #Hypothyroidism -TSH 3.15 on 09/27 -Resumed home levothyroxine #Anxiety disorder -med rec pending Health Maintenance Disposition: Medsurg DVT Prophylaxis: will hold due to anticipated procedure tomorrow GI Prophylaxis: not indicated Diet: carbohydrate consistent Lines: Peripheral lines Code status: Full Assessment and plan discussed with my attending physician Dr. Pat Rangel (PGY-1)- Internal medicine resident Attending Provider Attestation/Addendum I have discussed and was present for the essential components of the history, physical examination, diagnosis, and treatment plan with the resident. I agree with the patient's care as documented by the resident and amended herein by me. Eric Stewart, . Patient seen and evaluated this AM. 62-year-old female with significant past medical history of hypertension, diabetes and total knee replacement approximately 2 months prior to admission, admitted for prosthetic joint infection, patient endorses purulent discharge from the incision site over left knee. Erythema and pus at time of bedside visit also present. At time of admission, vital signs stable, patient afebrile, labs large unremarkable, x-ray of the patient's knee unremarkable. Vancomycin and Zosyn was given in the ED, orthopedic surgery was consulted. Will continue ceftriaxone and vancomycin, orthopedic surgery to take the patient to the OR tomorrow for I&D as well as washout. Appreciate additional specialist recommendations, will continue to monitor closely Although this document has been carefully reviewed, there may still be some phonetic and other typographical errors. These errors are purely grammatical due to imperfections in the software program and should not be construed in any way to compromise the substance of the patient's medical care during this visit.
[2024-12-11] MEDS: PIPER/TAZO 3.375 GM PREMIX 3.375 GM/50 ML BAG IV (18:27)
[2024-12-11] MEDS: cefTRIAXone/D5w 1gm IV premix 1 GM/50 ML BAG IV (18:27)
[2024-12-11] MEDS: VANCOMYCIN/NS 1 GM IVPB 200 ML IV (18:28)
[2024-12-11 19:25] VITALS: PULSE 68; RESP 96
[2024-12-11 19:27] VITALS: BP 137/71; PULSE 66; RESP 16; O2SAT 96
[2024-12-11 19:54] VITALS: TEMP 36.6
--- NOTE | 2024-12-11 20:52 | PC.NURSE ---
REPORT GIVEN TO FLOOR NURSE ALINA
[2024-12-11 21:14] VITALS: BMI 39.0
[2024-12-11 21:31] VITALS: BP 162/78; PULSE 89
[2024-12-11] MEDS: Lisinopril 20 MG TABLET PO (21:31)
[2024-12-12] VITALS (20 sets, daily range): BP systolic 140–186; BP diastolic 72–104; PULSE 69–85; RESP 12–96; TEMP 36–37.2; O2SAT 94–100
[2024-12-12] MEDS: HYDROcodone/APAP 5/325 TABLET 1 TAB PO ×2 (04:19→20:07)
[2024-12-12 05:15] LABS: Basophils % (Auto) 1 % (0-2.5); Eosinophils # (Auto) 0.1 Thou/mm3 (0.0-0.5); Eosinophils % (Auto) 2 % (0-10); Hematocrit 30.3 % (36.0-46.0); Hemoglobin 9.7 g/dL (12.0-16.0); Immature Granulocytes % (Auto) 0 % (0-0); Immature Granulocytes Auto 0.02 Thou/mm3 (0.00-0.00); Lymphocytes # (Auto) 1.9 Thou/mm3 (1.0-4.8); Lymphocytes % (Auto) 30 % (10-50); Mean Corpuscular Hemoglobin 25.7 pg (25.0-35.0); Mean Corpuscular Volume 80 fL (80-100); Monocytes # (Auto) 0.4 Thou/mm3 (0.0-0.8); Monocytes % (Auto) 7 % (0-12); Neutrophils # (Auto) 3.8 Thou/mm3 (1.8-7.7); Neutrophils % (Auto) 60 % (37-80); Nucleated Red Blood Cell % 0 /100 WBC (0); Platelet Count 414 Thou/mm3 (140-440); RDW Standard Deviation 46.1 fL (36.4-46.3); Red Blood Count 3.78 Miln/mm3 (4.00-5.20); White Blood Count 6.2 Thou/mm3 (3.6-11.0)
[2024-12-12] MEDS: LEVOTHYROXINE SODIUM 125 MCG TABLET PO (05:39)
[2024-12-12 05:43] LABS: Alanine Aminotransferase 14 U/L (10-49); Albumin, Serum 4.1 gm/dL (3.4-4.8); Albumin/Globulin Ratio 1.7 (1.2-2.2); Alkaline Phosphatase 78 U/L (46-116); Anion Gap 13 (7-16); Aspartate Amino Transferase 16 U/L (0-34); BUN/Creatinine Ratio 23 Ratio (12-20); Bilirubin,Total < 0.2 mg/dL (0.3-1.2); Blood Urea Nitrogen 16 mg/dL (9-23); Calcium 9.1 mg/dL (8.3-10.6); Calcium (Corrected) 9.1 mg/dL (8.5-10.1); Carbon Dioxide 23.4 mMol/L (20.0-31.0); Chloride 107 mMol/L (98-107); Creatinine (Component) 0.7 mg/dL (0.6-1.3); Estimated Creatinine Clearance 90.5 mL/min (>60); Globulin 2.4 gm/dL (2.3-3.5); Glucose 91 mg/dL (74-106); Osmolality,Calculated 286 (275-295); Potassium 3.6 mMol/L (3.4-5.1); Sodium 143 mMol/L (136-145); Total Protein 6.5 gm/dL (5.7-8.2); eGFR > 60 See Note
[2024-12-12] MEDS: cefTRIAXone/D5w 1gm IV premix 1 GM/50 ML BAG IV (08:57)
[2024-12-12] MEDS: Lisinopril 20 MG TABLET PO (08:57)
--- NOTE | 2024-12-12 09:11 | PC.SS ---
Follow up note: Dr. Verdugo is consulting. Surgery to clean infection in knee joint. On IV antibiotic.
--- NOTE | 2024-12-12 12:18 | PC.SS ---
SS met with patient regarding her d/c plan. Pt is alert/oriented. Pt was admitted for Infected Prosthetic Knee Joint. Pt confirmed demographic and contact information is correct on facesheet. Pt resides with . Pt ambulates using a cane. Pt is ok with all ADLs. Patient?s pharmacy of choice is [facility]. Pt named her , Kike Coombs medical decision maker if he is unable. Patient?s choice is to return home upon d/c. Pt states she is diabetic, has glucometer, and test strips. Pt states she is not on dialysis. or dtr, [facility] will provide transportation home. pt states she followed up with PCP 2 weeks ago. D/C plan: Return home Next of Kin: Kike Coombs, , phone# [phone] PCP: Addi Senior from [facility] in [place] Address: Correct on facesheet
--- NOTE | 2024-12-12 13:34 | SUR.PHASEI ---
pt received from OR in recovery bay 5. pt asleep but responds to voice, breathing unlabored on oxymask 8l. v/s stable. pt dressing to left lower extremity cdi, wound vac in place. report received from Sandro SUERO and Kerry Babcock.
[2024-12-12] MEDS: fentaNYL CIT INJ 50 mCg/ML AMP 2ML 25 MCG IVP ×6 (13:43→14:42)
--- NOTE | 2024-12-12 13:43 | ESOP_ITS ---
Date of Procedure 12/12/24 Pre Op Diagnosis Is status post left total knee replacement with infected knee Post Op Diagnosis Same Procedure Irrigation debridement and placement of the Hemovac drain. Findings Refer dictation Procedure Description Patient was given general anesthesia. Was satisfactory anesthesia achieved a tourniquet was placed on the left upper thigh. Following that part was thoroughly prepped and draped. After raising the leg for couple of minutes the tourniquet pressure was raised to 350 mmHg The wound culture swab was obtained and sent for aerobic and anaerobic culture and sensitivity and for Gram staining. Skin is was made at t starting from the inferior aspect extending for abouthe scar site 3 to 4 inches long. Deeper dissection is carried out. The track of the discharge was followed. All necrotic tissue was excised. Just stopped just proximal to the knee joint. Wound was irrigated with antibiotic solution. Copious amount of antibiotic solution was used. Hydrogen peroxide solution was used as well. The Betadine iodine was also used. Following that with the help of 2 Vicryl's the soft tissue was closed. A Hemovac drain was already placed. The skin was closed with the 1 Prolene in interrupted fashion. Patient tolerated procedure very well. Estimated blood loss about 5 to 10 mL. Prognosis in this case is guarded. As explained to patient earlier there is a possibility that patient may need further surgical procedure and possible revision on the implant. We have to wait and see how she responds to this procedure and IV antibiotics. Anesthesia GETA and other Pathology / specimen None Estimated Blood Loss 5 Surgeon Nahum Julien MD Surgical Staff Operation Date: 12/12/24 13:15 Case Staff CANAL LOCK TENDER CHIEF OPERATOR: Bob Tovar
[2024-12-12] MEDS: KETOROLAC INJ 30 MG/ML VIAL IVP (13:44)
[2024-12-12] MEDS: HYDROmorphone INJ 2 MG/ML VIAL 0.4 MG IVP ×3 (14:17→14:53)
--- NOTE | 2024-12-12 15:21 | ESCONSULT_ITS ---
RE: AMIRA LONG : 1960 DATE OF CONSULTATION: 12/12/[address] Rangel for asking me to consult on this patient whom I saw again on 12/12/2024. HISTORY OF PRESENT ILLNESS: The patient is status post left total knee replacement done by me on 09/26/2024. The patient was doing extremely good. The patient also did physical therapy. There is not much pain at all. The patient went to [place] about 2 weeks back or so. The patient noticed a small opening on the distal end of the scar. The patient also stated that she had a history of diarrhea, nausea, and vomiting. She had fever and chills later on as well. The patient came to [place] I believe a couple of days back and was seen by me in my office on 12/11. The patient was advised to go to the emergency room and from there she was admitted. PAST MEDICAL HISTORY: The patient has history of diabetes mellitus and high blood pressure. There is a history of hypothyroidism and hyperlipidemia. PAST SURGICAL HISTORY: Status post left total knee replacement done on 09/26/2024. DRUG HISTORY: The patient is on, 1. Aspirin. 2. Clonazepam. 3. Levothyroxine. 4. Lisinopril. 5. Lyrica. 6. Metformin. ALLERGIES: NIL KNOWN. FAMILY HISTORY AND SOCIAL HISTORY: Noncontributory in this case. PHYSICAL EXAMINATION: GENERAL: Fully alert and oriented lady. NECK: Soft, supple. No masses felt. Trachea is centrally placed. CARDIOVASCULAR SYSTEM: First and second heart sound normal. No murmur heard. RESPIRATORY SYSTEM: Bilateral vesicular breath sounds. CHEST: Clear. ABDOMEN: Soft. No masses felt. Bowel sounds present. EXTREMITIES: Left lower limb examination revealed a well-healed scar. Just proximal to tibial tuberosity, there is a less than 1 mm opening and some discharge is coming out. The skin is not red or hot. Active range of motion is 0 to 80 degrees of flexion and the patient did not experience much pain. DIAGNOSTIC DATA: X-ray of the left knee joint was rather unremarkable. RECOMMENDATIONS: The patient was advised definitive treatment. Risk with anesthesia was explained and that includes, but not limited to reaction to anesthetic agents, cardiac arrest or rarely it might be fatal. Risks of the operation includes wound dehiscence, etc. I also explained that depending on my finding, I may go and irrigate and debride it. However, there is a possibility that if it does not help, then we have two options. The first option is to go and do the polyethylene exchange and I explained the nature of this surgery. The other option is to go for revision of knee replacement and that is sometimes 2-3 step procedure and I do not do this kind of operation. In that case the patient may have to be transferred for a higher level of care. The patient is fully aware of that. As stated earlier, the patient agreed with irrigation and debridement and see how she responds. The patient will also be put on IV antibiotics, which may last as much as up to 6 weeks of IV antibiotics and 6 weeks of oral antibiotics. The patient is fully aware of that. Accordingly, surgery is booked for 12/12/2024. Appropriate lab work is done. DT: 13:43:16 TT: 15:20:00 Ref: [id number] - TID: [id number]
--- NOTE | 2024-12-12 15:29 | SUR.PHASEI ---
pt asleep but responds to voice, breathing unlabored on nc 2l. v/s stable. pt dressing to left lower extremity cdi. report called to Radha Babcock. pt will be transferred to room at this time.
--- NOTE | 2024-12-12 17:34 | ESPR_ITS ---
Documentation for date of: 12/12/24 Subjective Subjective Interval history: No acute overnight events reported. Patient seen and examined at bedside this morning. Patient continues to have significant pain in the left knee and purulent discharge overnight. Patient underwent irrigation debridement and placement of Hemovac drain on the left knee. Will continue IV antibiotics and pain control. Pending wound culture. Vitals are stable patient's home hypertensive medication is resumed. Labs are reviewed, hemoglobin 9.7 hematocrit 30.3. Exam Vital Signs Temp Pulse Resp BP Pulse Ox O2 Del Method O2 Flow Rate 98.9 F 83 17 158/87 H 98 Room Air 2 12/12/24 16:40 12/12/24 16:40 12/12/24 16:40 12/12/24 16:40 12/12/24 16:40 12/12/24 04:00 12/12/24 15:15 Narrative Exam GENERAL: A&Ox3 . Awake, Not in acute distress NEURO: no focal neurological deficits HEENT: Atraumatic, Normocephalic. mucous membranes moist. Eyes open, symmetrical, & clear HEART: Normal Heart Sounds LUNGS: Clear to auscultation with no wheezing or crackles. ABDOMEN: soft, non-distended, non-tender, bowel sounds heard, no guarding or rebound tenderness SKIN: No Rash or ecchymoses EXTREMITIES: No edema, able to move all 4 extremities, pedal pulses palpated, w ound drain in left knee seen. Objective Labs 12/12/24 04:20 12/12/24 04:20 Labs: Laboratory Results - last 24 hr 12/12/24 04:20 WBC 6.2 RBC 3.78 L Hgb 9.7 L Hct 30.3 L MCV 80 MCH 25.7 MCHC 32.0 RDW Std Deviation 46.1 Plt Count 414 D Neut % (Auto) 60 Lymph % (Auto) 30 [place] % (Auto) 7 Eos % (Auto) 2 Baso % (Auto) 1 Neut # (Auto) 3.8 Lymph # (Auto) 1.9 [place] # (Auto) 0.4 Eos # (Auto) 0.1 Baso # (Auto) 0.0 Immature Gran # (Auto) 0.02 H Absolute Nucleated RBC 0.00 Immature Gran % 0 Nucleated RBC % 0 Sodium 143 Potassium 3.6 D Chloride 107 Carbon Dioxide 23.4 Anion Gap 13 BUN 16 Creatinine 0.7 Estim Creat Clear Calc 90.5 eGFR > 60 BUN/Creatinine Ratio 23 H Glucose 91 Calculated Osmolality 286 Calcium 9.1 Corrected Calcium 9.1 Total Bilirubin < 0.2 L AST 16 ALT 14 Alkaline Phosphatase 78 Total Protein 6.5 Albumin 4.1 Globulin 2.4 Albumin/Globulin Ratio 1.7 Quality Measures Quality Measures none Assessment & Plan Assessment Current Active Medications: Generic Name Dose Route Start Last Admin Trade Name Freq PRN Reason Stop Dose Admin Acetaminophen 650 mg 12/12/24 09:45 Acetaminophen 325 Mg Tablet PO 01/10/25 18:10 Q6H PRN Fever >100.3 Amlodipine Besylate 10 mg 12/12/24 17:15 Amlodipine Besylate 5 Mg Tablet PO 01/11/25 17:14 QDAY RAFY Clonazepam 1 mg 12/12/24 21:00 Clonazepam 0.5 Mg Tablet PO 12/17/24 20:59 BID RAFY Duloxetine HCl 30 mg 12/12/24 21:00 Duloxetine Hcl 30 Mg Capsule PO 01/11/25 20:59 HS RAFY Ceftriaxone Sodium/Dextrose 1 gm in 50 mls @ 100 mls/hr 12/11/24 18:21 12/12/24 08:57 Rocephin/D5w 1gm Iv Premix IV 12/18/24 18:20 100 mls/hr QDAY RAFY Administration Vancomycin HCl 250 mls @ 120 mls/hr 12/12/24 10:00 Vancomycin/Water 1250 Mg Ivpb IV 12/19/24 09:59 Q12H RAFY Protocol Levothyroxine Sodium 125 mcg 12/12/24 06:00 12/12/24 05:39 Levothyroxine Sodium 125 Mcg Tablet PO 01/11/25 05:59 125 mcg ACBR RAFY Administration Lisinopril 20 mg 12/13/24 09:00 Lisinopril 20 Mg Tablet PO 01/12/25 08:59 QDAY RAFY Ondansetron HCl 4 mg 12/11/24 18:11 Ondansetron Inj 2 Mg/Ml Inj 2 Ml IVP 01/10/25 18:10 Q6H PRN NAUSEA OR VOMITING Protocol Pharmacy Consult 1 each 12/12/24 09:00 Vancomycin Pharmacy To Dose 1 Each Each IV 01/11/25 08:59 QDAY RAFY Pregabalin 75 mg 12/12/24 22:00 Pregabalin 75 Mg Capsule PO 01/11/25 21:59 TID RAFY Plan Ms. Stevens is a 63-year-old female with past medical history significant for type 2 diabetes, hypertension, hyperlipidemia, hypothyroidism and anxiety disorder. Patient is admitted to the hospital for management of infected left knee arthroplasty. #Infected left knee arthroplasty s/p irrigation debridement #Left knee replacement surgery, 09/26 -Patient underwent left knee replacement surgery with Dr. Julien on 09/26 -Knee Xray-Moderate knee effusion, Soft tissue swelling prepatellar -Purulent discharge noted from left Knee -Patient underwent irrigation debridement and placement of Hemovac drain on the left knee on 12/12 Plan: -Pain control ordered -Ceftriaxone started 12/11- -Vancomycin started 12/12- -Consulted orthopedic surgeon Dr. Julien #Primary hypertension #Hyperlipidemia -Resumed home lisinopril -Patient does not take any statins for hyperlipidemia #Non-Insulin dependent Type 2 diabetes -A1c 5.6 on 09/27, BG on admission 79 -Pt's home medication include metformin -WIll continue to monitor BG, and will add SSI if necessary #Hypothyroidism -TSH 3.15 on 09/27 -Resumed home levothyroxine #Anxiety disorder -Resumed home clonazepam -Resumed home duloxetine at bedtime Health Maintenance Disposition: Medsurg DVT Prophylaxis: will hold due to anticipated procedure tomorrow GI Prophylaxis: not indicated Diet: carbohydrate consistent Lines: Peripheral lines Code status: Full Assessment and plan discussed with my attending physician Dr. Pat Rangel (PGY-1)- Internal medicine resident Attending Provider Attestation/Addendum 8 I have discussed and was present for the essential components of the history, physical examination, diagnosis, and treatment plan with the resident. I agree with the patient's care as documented by the resident and amended herein by me. Eric Stewart DO. Patient seen and evaluated this AM. No acute events overnight, vital signs stable, patient afebrile, significant labs including normal WBC, hemoglobin 9.7 BMP unremarkable. Patient did undergo irrigation debridement and placement of a Hemovac drain today on the patient's left knee, no complications were reported. Will continue ceftriaxone and vancomycin for now, obtain additional orthopedic surgery recommendations for discharge planning and antibiotic duration. Will continue to monitor closely while she is here. Although this document has been carefully reviewed, there may still be some phonetic and other typographical errors. These errors are purely grammatical due to imperfections in the software program and should not be construed in any way to compromise the substance of the patient's medical care during this visit.
--- NOTE | 2024-12-12 18:00 | PC.LAC ---
Patient c/o left knee pain, pain level 10/10. Dr. Najera notified, MD to place orders.
[2024-12-12] MEDS: amLODIPine BESYLATE 5 MG TABLET 10 MG PO (18:16)
[2024-12-12] MEDS: VANCOMYCIN/WATER 1250 MG IVPB 250 ML 120 MG IV (21:55)
[2024-12-12] MEDS: PREGABALIN 75 MG CAPSULE PO (21:56)
[2024-12-12] MEDS: clonazePAM 0.5 MG TABLET 1 MG PO (21:56)
[2024-12-12] MEDS: DULoxetine HCL 30 MG CAPSULE PO (21:56)
[2024-12-13] VITALS (10 sets, daily range): BP systolic 118–174; BP diastolic 70–99; PULSE 84–98; RESP 15–96; TEMP 36.1–36.7; O2SAT 92–97
[2024-12-13] MEDS: HYDROcodone/APAP 5/325 TABLET 1 TAB PO ×4 (02:35→22:22)
[2024-12-13] MEDS: PREGABALIN 75 MG CAPSULE PO ×3 (05:57→21:16)
[2024-12-13] MEDS: LEVOTHYROXINE SODIUM 125 MCG TABLET PO (05:57)
[2024-12-13 06:46] LABS: Basophils % (Auto) 1 % (0-2.5); Eosinophils # (Auto) 0.1 Thou/mm3 (0.0-0.5); Eosinophils % (Auto) 1 % (0-10); Hematocrit 29.7 % (36.0-46.0); Hemoglobin 9.4 g/dL (12.0-16.0); Immature Granulocytes % (Auto) 0 % (0-0); Immature Granulocytes Auto 0.02 Thou/mm3 (0.00-0.00); Lymphocytes # (Auto) 1.9 Thou/mm3 (1.0-4.8); Lymphocytes % (Auto) 35 % (10-50); Mean Corpuscular HGB Conc 31.6 g/dl (31.0-37.0); Mean Corpuscular Hemoglobin 25.3 pg (25.0-35.0); Mean Corpuscular Volume 80 fL (80-100); Monocytes # (Auto) 0.4 Thou/mm3 (0.0-0.8); Monocytes % (Auto) 8 % (0-12); Neutrophils % (Auto) 55 % (37-80); Nucleated Red Blood Cell % 0 /100 WBC (0); Platelet Count 421 Thou/mm3 (140-440); RDW Standard Deviation 45.7 fL (36.4-46.3); Red Blood Count 3.71 Miln/mm3 (4.00-5.20); White Blood Count 5.4 Thou/mm3 (3.6-11.0)
[2024-12-13 08:00] LABS: Alanine Aminotransferase 13 U/L (10-49); Albumin/Globulin Ratio 1.5 (1.2-2.2); Alkaline Phosphatase 84 U/L (46-116); Anion Gap 14 (7-16); Aspartate Amino Transferase 19 U/L (0-34); BUN/Creatinine Ratio 17 Ratio (12-20); Bilirubin,Total 0.2 mg/dL (0.3-1.2); Blood Urea Nitrogen 10 mg/dL (9-23); Calcium 9.6 mg/dL (8.3-10.6); Calcium (Corrected) 9.6 mg/dL (8.5-10.1); Carbon Dioxide 23.5 mMol/L (20.0-31.0); Chloride 103 mMol/L (98-107); Creatinine (Component) 0.6 mg/dL (0.6-1.3); Estimated Creatinine Clearance 105.5 mL/min (>60); Globulin 2.6 gm/dL (2.3-3.5); Glucose 93 mg/dL (74-106); Osmolality,Calculated 278 (275-295); Potassium 3.3 mMol/L (3.4-5.1); Sodium 140 mMol/L (136-145); Total Protein 6.6 gm/dL (5.7-8.2); eGFR > 60 See Note
[2024-12-13] MEDS: Lisinopril 20 MG TABLET PO (08:48)
[2024-12-13] MEDS: amLODIPine BESYLATE 5 MG TABLET 10 MG PO (08:49)
[2024-12-13] MEDS: clonazePAM 0.5 MG TABLET 1 MG PO ×2 (08:49→20:23)
[2024-12-13] MEDS: cefTRIAXone/D5w 1gm IV premix 1 GM/50 ML BAG IV (08:52)
[2024-12-13] MEDS: VANCOMYCIN/WATER 1250 MG IVPB 250 ML 120 MG IV ×2 (09:44→21:16)
[2024-12-13] MEDS: POTASSIUM CHLORIDE 20 mEq TABCR 40 MEQ PO (10:23)
[2024-12-13 10:42] LABS: Vancomycin,Trough 14.1 mcg/mL (5.0-10.0)
--- NOTE | 2024-12-13 12:12 | ESPR_ITS ---
Documentation for date of: 12/13/24 Subjective Subjective Interval history: No acute overnight events reported. Patient seen and examined at bedside this morning. Vitals are stable, patient has remained afebrile overnight, saturating on room air. Labs are significant for hemoglobin 9.4, potassium 3.3. Electrolytes are repleted. On admission Gram stain of the abscess from the wound sustained GPC's and wound culture shows ESBL which is sensitive to Zosyn. Patient's antibiotics were changed to Zosyn. Blood cultures showed no growth at 48 hours. Patient underwent left knee washout and culture is pending. Per orthopedics recommendation patient will need IV antibiotics for 6-week therefore will order PICC line for Sunday morning. Exam Vital Signs Temp Pulse Resp BP Pulse Ox O2 Del Method O2 Flow Rate 96.9 F 85 19 153/80 H 95 Room Air 2 12/13/24 08:00 12/13/24 08:49 12/13/24 08:00 12/13/24 08:49 12/13/24 08:00 12/13/24 08:00 12/13/24 04:00 Narrative Exam GENERAL: A&Ox3 . Awake, Not in acute distress NEURO: no focal neurological deficits HEENT: Atraumatic, Normocephalic. mucous membranes moist. Eyes open, symmetrical, & clear HEART: Normal Heart Sounds LUNGS: Clear to auscultation with no wheezing or crackles. ABDOMEN: soft, non-distended, non-tender, bowel sounds heard, no guarding or rebound tenderness SKIN: No Rash or ecchymoses EXTREMITIES: No edema, able to move all 4 extremities, pedal pulses palpated, w ound drain in left knee seen. Objective Labs 12/13/24 05:11 12/13/24 05:11 Labs: Laboratory Results - last 24 hr 12/13/24 12/13/24 05:11 09:38 WBC 5.4 RBC 3.71 L Hgb 9.4 L Hct 29.7 L MCV 80 MCH 25.3 MCHC 31.6 RDW Std Deviation 45.7 Plt Count 421 Neut % (Auto) 55 Lymph % (Auto) 35 [place] % (Auto) 8 Eos % (Auto) 1 Baso % (Auto) 1 Neut # (Auto) 3.0 Lymph # (Auto) 1.9 [place] # (Auto) 0.4 Eos # (Auto) 0.1 Baso # (Auto) 0.0 Immature Gran # (Auto) 0.02 H Absolute Nucleated RBC 0.00 Immature Gran % 0 Nucleated RBC % 0 Sodium 140 Potassium 3.3 L Chloride 103 Carbon Dioxide 23.5 Anion Gap 14 BUN 10 Creatinine 0.6 Estim Creat Clear Calc 105.5 eGFR > 60 BUN/Creatinine Ratio 17 Glucose 93 Calculated Osmolality 278 Calcium 9.6 Corrected Calcium 9.6 Total Bilirubin 0.2 L AST 19 ALT 13 Alkaline Phosphatase 84 Total Protein 6.6 Albumin 4.0 Globulin 2.6 Albumin/Globulin Ratio 1.5 Vancomycin Trough 14.1 H Quality Measures Quality Measures none Assessment & Plan Assessment Current Active Medications: Generic Name Dose Route Start Last Admin Trade Name Freq PRN Reason Stop Dose Admin Acetaminophen 650 mg 12/12/24 09:45 Acetaminophen 325 Mg Tablet PO 01/10/25 18:10 Q6H PRN Fever >100.3 Hydrocodone Bitart/Acetaminophen 1 tab 12/12/24 18:52 12/13/24 09:43 Hydrocodone/Apap 5/325 Tablet PO 12/17/24 18:51 1 tab Q6HR PRN Administration PAIN 4-10 Amlodipine Besylate 10 mg 12/12/24 17:15 12/13/24 08:49 Amlodipine Besylate 5 Mg Tablet PO 01/11/25 17:14 10 mg QDAY RAFY Administration Clonazepam 1 mg 12/12/24 21:00 12/13/24 08:49 Clonazepam 0.5 Mg Tablet PO 12/17/24 20:59 1 mg BID RAFY Administration Duloxetine HCl 30 mg 12/12/24 21:00 12/12/24 21:56 Duloxetine Hcl 30 Mg Capsule PO 01/11/25 20:59 30 mg HS RAFY Administration Piperacillin Sod/Tazobactam 100 mls @ 25 mls/hr 12/13/24 22:00 Sod 4.5 gm/ Sodium Chloride IV 12/20/24 21:59 Q8HR RAFY Vancomycin HCl 250 mls @ 120 mls/hr 12/13/24 11:15 Vancomycin/Water 1250 Mg Ivpb IV 12/20/24 11:14 Q12HR@1000,2200 [facility] Protocol Levothyroxine Sodium 125 mcg 12/12/24 06:00 12/13/24 05:57 Levothyroxine Sodium 125 Mcg Tablet PO 01/11/25 05:59 125 mcg ACBR RAFY Administration Lisinopril 20 mg 12/13/24 09:00 12/13/24 08:48 Lisinopril 20 Mg Tablet PO 01/12/25 08:59 20 mg QDAY RAFY Administration Ondansetron HCl 4 mg 12/11/24 18:11 Ondansetron Inj 2 Mg/Ml Inj 2 Ml IVP 01/10/25 18:10 Q6H PRN NAUSEA OR VOMITING Protocol Pharmacy Consult 1 each 12/13/24 11:00 Vancomycin Pharmacy To Dose 1 Each Each IV 01/12/25 10:59 QDAY PRN PROTOCOL Pregabalin 75 mg 12/12/24 22:00 12/13/24 05:57 Pregabalin 75 Mg Capsule PO 01/11/25 21:59 75 mg TID RAFY Administration Plan Ms. Stevens is a 63-year-old female with past medical history significant for type 2 diabetes, hypertension, hyperlipidemia, hypothyroidism and anxiety disorder. Patient is admitted to the hospital for management of infected left knee arthroplasty. #Infected left knee arthroplasty s/p irrigation debridement #Left knee replacement surgery, 09/26 -Patient underwent left knee replacement surgery with Dr. Julien on 09/26 -Knee Xray-Moderate knee effusion, Soft tissue swelling prepatellar -Purulent discharge noted from left Knee -Patient underwent irrigation debridement and placement of Hemovac drain on the left knee on 12/12 Plan: -Pain control ordered -Ceftriaxone started 12/11-12/13 -Zosyn started 12/13- -Vancomycin started 12/12- -PICC line insertion ordered for Sunday -Consulted orthopedic surgeon Dr. Julien #Primary hypertension #Hyperlipidemia -Resumed home lisinopril -Patient does not take any statins for hyperlipidemia #Non-Insulin dependent Type 2 diabetes -A1c 5.6 on 09/27, BG on admission 79 -Pt's home medication include metformin -WIll continue to monitor BG, and will add SSI if necessary #Hypothyroidism -TSH 3.15 on 09/27 -Resumed home levothyroxine #Anxiety disorder -Resumed home clonazepam -Resumed home duloxetine at bedtime Health Maintenance Disposition: Medsurg DVT Prophylaxis: will hold due to anticipated procedure tomorrow GI Prophylaxis: not indicated Diet: carbohydrate consistent Lines: Peripheral lines Code status: Full Assessment and plan discussed with my attending physician Dr. Pat Rangel (PGY-1)- Internal medicine resident Attending Provider Attestation/Addendum I have discussed and was present for the essential components of the history, physical examination, diagnosis, and treatment plan with the resident. I agree with the patient's care as documented by the resident and amended herein by me. Eric Stewart DO. Patient seen and evaluated this AM. No acute events overnight, patient now postop day 1 from irrigation debridement and placement of a Hemovac in the patient's left knee. Will continue IV antibiotics at this time, will change ceftriaxone to Zosyn due to initial superficial wound culture demonstrating ESBL E. coli sensitive to Zosyn. Will also add on vancomycin for now until cultures from the actual I&D result then we can de-escalate as needed.. May consider consulting infectious disease on Sunday for long-term antibiotic recommendations. Will continue to monitor closely for now. Although this document has been carefully reviewed, there may still be some phonetic and other typographical errors. These errors are purely grammatical due to imperfections in the software program and should not be construed in any way to compromise the substance of the patient's medical care during this visit.
[2024-12-13] MEDS: PIPER/TAZO INJ 4.5 GM in SODIUM CHLORIDE 0.9% (POP) 100 ML IV ×2 (13:06→23:36)
[2024-12-13] MEDS: DULoxetine HCL 30 MG CAPSULE PO (20:23)
[2024-12-14] VITALS (9 sets, daily range): BP systolic 120–148; BP diastolic 59–81; PULSE 70–90; RESP 17–96; TEMP 36.1–36.6; O2SAT 91–98
[2024-12-14 05:59] LABS: Basophils # (Auto) 0.1 Thou/mm3 (0.0-0.2); Basophils % (Auto) 1 % (0-2.5); Eosinophils # (Auto) 0.1 Thou/mm3 (0.0-0.5); Eosinophils % (Auto) 2 % (0-10); Hematocrit 29.5 % (36.0-46.0); Hemoglobin 9.2 g/dL (12.0-16.0); Immature Granulocytes % (Auto) 1 % (0-0); Immature Granulocytes Auto 0.02 Thou/mm3 (0.00-0.00); Lymphocytes # (Auto) 2.3 Thou/mm3 (1.0-4.8); Lymphocytes % (Auto) 52 % (10-50); Mean Corpuscular HGB Conc 31.2 g/dl (31.0-37.0); Mean Corpuscular Hemoglobin 25.2 pg (25.0-35.0); Mean Corpuscular Volume 81 fL (80-100); Monocytes # (Auto) 0.5 Thou/mm3 (0.0-0.8); Monocytes % (Auto) 10 % (0-12); Neutrophils # (Auto) 1.5 Thou/mm3 (1.8-7.7); Neutrophils % (Auto) 34 % (37-80); Nucleated Red Blood Cell % 0 /100 WBC (0); Platelet Count 425 Thou/mm3 (140-440); RDW Standard Deviation 46.2 fL (36.4-46.3); Red Blood Count 3.65 Miln/mm3 (4.00-5.20); White Blood Count 4.3 Thou/mm3 (3.6-11.0)
[2024-12-14 06:31] LABS: Alanine Aminotransferase 12 U/L (10-49); Albumin, Serum 3.7 gm/dL (3.4-4.8); Albumin/Globulin Ratio 1.3 (1.2-2.2); Alkaline Phosphatase 78 U/L (46-116); Anion Gap 8 (7-16); Aspartate Amino Transferase 14 U/L (0-34); BUN/Creatinine Ratio 12 Ratio (12-20); Bilirubin,Total 0.2 mg/dL (0.3-1.2); Blood Urea Nitrogen 11 mg/dL (9-23); Calcium (Corrected) 9.2 mg/dL (8.5-10.1); Carbon Dioxide 24.7 mMol/L (20.0-31.0); Chloride 111 mMol/L (98-107); Creatinine (Component) 0.9 mg/dL (0.6-1.3); Estimated Creatinine Clearance 70.4 mL/min (>60); Globulin 2.9 gm/dL (2.3-3.5); Glucose 93 mg/dL (74-106); Osmolality,Calculated 286 (275-295); Potassium 3.7 mMol/L (3.4-5.1); Sodium 144 mMol/L (136-145); Total Protein 6.6 gm/dL (5.7-8.2); eGFR > 60 See Note
[2024-12-14] MEDS: LEVOTHYROXINE SODIUM 125 MCG TABLET PO (06:31)
[2024-12-14] MEDS: PREGABALIN 75 MG CAPSULE PO ×3 (06:31→21:51)
[2024-12-14] MEDS: PIPER/TAZO INJ 4.5 GM in SODIUM CHLORIDE 0.9% (POP) 100 ML IV ×3 (06:31→21:53)
[2024-12-14] MEDS: HYDROcodone/APAP 5/325 TABLET 1 TAB PO ×3 (06:31→20:15)
[2024-12-14] MEDS: Lisinopril 20 MG TABLET PO (08:46)
[2024-12-14] MEDS: clonazePAM 0.5 MG TABLET 1 MG PO ×2 (08:46→20:34)
[2024-12-14] MEDS: amLODIPine BESYLATE 5 MG TABLET 10 MG PO (08:46)
[2024-12-14] MEDS: VANCOMYCIN/WATER 1250 MG IVPB 250 ML 120 MG IV ×2 (09:43→21:55)
--- NOTE | 2024-12-14 12:06 | ESPR_ITS ---
Documentation for date of: 12/14/24 Subjective Subjective Interval history: No acute events overnight.?Patient seen and examined at bedside this AM.?Patient reports doing well. Per nursing, patient would like to use the bedside commode to use the bathroom.?Will check with Dr. Verdugo to see if there are any mobility limitations. Labs and vitals were reviewed and were stable.?Awaiting 12/12 left knee wound culture to result. Previous culture on 12/11 showed ESBL E. coli. Will consider ID consult if new culture results in the same. Plan is for PICC line placement on Sunday, patient will require 6 weeks of antibiotics. No further complaints at this time. Review of systems otherwise negative except what is mentioned above. Exam Vital Signs Temp Pulse Resp BP Pulse Ox O2 Del Method O2 Flow Rate 97.8 F 86 18 147/80 H 93 L Room Air 2 12/14/24 08:00 12/14/24 10:39 12/14/24 10:39 12/14/24 08:46 12/14/24 08:00 12/14/24 08:00 12/13/24 04:00 Narrative Exam GENERAL: A&Ox3. Awake, Not in acute distress NEURO: no focal neurological deficits HEENT: Atraumatic, Normocephalic. mucous membranes moist. Eyes open, symmetrical, & clear HEART: Normal Heart Sounds LUNGS: Clear to auscultation with no wheezing or crackles. ABDOMEN: soft, non-distended, non-tender, bowel sounds heard, no guarding or rebound tenderness SKIN: No Rash or ecchymoses EXTREMITIES: No edema, able to move all 4 extremities, pedal pulses palpated, w ound drain in left knee seen. Objective Labs 12/14/24 05:14 12/14/24 05:13 Labs: Laboratory Results - last 24 hr 12/14/24 12/14/24 05:13 05:14 WBC 4.3 RBC 3.65 L Hgb 9.2 L Hct 29.5 L MCV 81 MCH 25.2 MCHC 31.2 RDW Std Deviation 46.2 Plt Count 425 Neut % (Auto) 34 L Lymph % (Auto) 52 H [place] % (Auto) 10 Eos % (Auto) 2 Baso % (Auto) 1 Neut # (Auto) 1.5 L Lymph # (Auto) 2.3 [place] # (Auto) 0.5 Eos # (Auto) 0.1 Baso # (Auto) 0.1 Immature Gran # (Auto) 0.02 H Absolute Nucleated RBC 0.00 Immature Gran % 1 H Nucleated RBC % 0 Sodium 144 Potassium 3.7 Chloride 111 H Carbon Dioxide 24.7 Anion Gap 8 BUN 11 Creatinine 0.9 Estim Creat Clear Calc 70.4 eGFR > 60 BUN/Creatinine Ratio 12 Glucose 93 Calculated Osmolality 286 Calcium 9.0 Corrected Calcium 9.2 Total Bilirubin 0.2 L AST 14 ALT 12 Alkaline Phosphatase 78 Total Protein 6.6 Albumin 3.7 Globulin 2.9 Albumin/Globulin Ratio 1.3 Quality Measures Quality Measures none Assessment & Plan Assessment Current Active Medications: Generic Name Dose Route Start Last Admin Trade Name Freq PRN Reason Stop Dose Admin Acetaminophen 650 mg 12/12/24 09:45 Acetaminophen 325 Mg Tablet PO 01/10/25 18:10 Q6H PRN Fever >100.3 Hydrocodone Bitart/Acetaminophen 1 tab 12/12/24 18:52 12/14/24 06:31 Hydrocodone/Apap 5/325 Tablet PO 12/17/24 18:51 1 tab Q6HR PRN Administration PAIN 4-10 Amlodipine Besylate 10 mg 12/12/24 17:15 12/14/24 08:46 Amlodipine Besylate 5 Mg Tablet PO 01/11/25 17:14 10 mg QDAY RAFY Administration Clonazepam 1 mg 12/12/24 21:00 12/14/24 08:46 Clonazepam 0.5 Mg Tablet PO 12/17/24 20:59 1 mg BID RAFY Administration Duloxetine HCl 30 mg 12/12/24 21:00 12/13/24 20:23 Duloxetine Hcl 30 Mg Capsule PO 01/11/25 20:59 30 mg HS RAFY Administration Piperacillin Sod/Tazobactam 100 mls @ 25 mls/hr 12/13/24 22:00 12/14/24 06:31 Sod 4.5 gm/ Sodium Chloride IV 12/20/24 21:59 25 mls/hr Q8HR RAFY Administration Vancomycin HCl 250 mls @ 120 mls/hr 12/13/24 11:15 12/14/24 09:43 Vancomycin/Water 1250 Mg Ivpb IV 12/20/24 11:14 120 mls/hr Q12HR@1000,2200 RAFY Administration Protocol Levothyroxine Sodium 125 mcg 12/12/24 06:00 12/14/24 06:31 Levothyroxine Sodium 125 Mcg Tablet PO 01/11/25 05:59 125 mcg ACBR RAFY Administration Lisinopril 20 mg 12/13/24 09:00 12/14/24 08:46 Lisinopril 20 Mg Tablet PO 01/12/25 08:59 20 mg QDAY RAFY Administration Ondansetron HCl 4 mg 12/11/24 18:11 Ondansetron Inj 2 Mg/Ml Inj 2 Ml IVP 01/10/25 18:10 Q6H PRN NAUSEA OR VOMITING Protocol Pharmacy Consult 1 each 12/13/24 11:00 Vancomycin Pharmacy To Dose 1 Each Each IV 01/12/25 10:59 QDAY PRN PROTOCOL Polyethylene Glycol 17 gm 12/14/24 11:30 Polyethylene Glycol 17 Gm Packet PO 01/13/25 11:29 QDAY RAFY Pregabalin 75 mg 12/12/24 22:00 12/14/24 06:31 Pregabalin 75 Mg Capsule PO 01/11/25 21:59 75 mg TID RAFY Administration Plan Ms. Stevens is a 63-year-old female with past medical history significant for type 2 diabetes, hypertension, hyperlipidemia, hypothyroidism and anxiety disorder. Patient is admitted to the hospital for management of infected left knee arthroplasty. #Infected left knee arthroplasty s/p irrigation debridement #Left knee replacement surgery, 09/26 -Patient underwent left knee replacement surgery with Dr. Julien on 09/26 -Knee Xray showed moderate knee effusion, soft tissue swelling prepatellar -Purulent discharge noted from left knee -Patient underwent irrigation debridement and placement of Hemovac drain on the left knee on 12/12 -Ceftriaxone was taken 12/11-12/13 Plan: -Pain control with [place] and Dilaudid -Continue Zosyn 12/13- (sensitive to ESBL) -Vancomycin started 12/12- -PICC line insertion ordered for Sunday -Orthopedic surgeon Dr. Julien following, appreciate recommendations #Primary hypertension #Hyperlipidemia -Continue home lisinopril 20 mg qday -Patient does not take any statins for hyperlipidemia #Non-insulin dependent type 2 diabetes -A1c 5.6 on 09/27, BG on admission 79 -Pt's home medication include metformin -WIll continue to monitor BG, and will add SSI if necessary #Hypothyroidism -TSH 3.15 on 09/27 -Continue home levothyroxine 125 mcg qday #Anxiety disorder -Continue home clonazepam 1 mg BID -Continue home duloxetine 30 mg HS Health Maintenance Disposition: Medsurg DVT Prophylaxis: Will hold due to anticipated procedure tomorrow GI Prophylaxis: not indicated Diet: Carbohydrate consistent, NPO 6 hours prior to procedure Lines: Peripheral lines Code status: Full Patient plan of care was discussed with the attending physician, Dr. Stewart. Tessy Najera, PGY-2 Attending Provider Attestation/Addendum I have discussed and was present for the essential components of the history, physical examination, diagnosis, and treatment plan with the resident. I agree with the patient's care as documented by the resident and amended herein by me. Eric Stewart, DO. Patient seen and evaluated this AM. No acute events overnight, vital signs stable, patient afebrile. Hemoglobin stable at 8.2, left knee drain had scant reddish output. Wound culture still pending, PICC line will be placed tomorrow, will discuss case with orthopedic surgery after that, may consider infectious disease consult depending on what grows in the cultures. ESBL was seen on initial superficial wound cultures. Will continue to monitor closely while she is here. Although this document has been carefully reviewed, there may still be some phonetic and other typographical errors. These errors are purely grammatical due to imperfections in the software program and should not be construed in any way to compromise the substance of the patient's medical care during this visit.
[2024-12-14] MEDS: POLYETHYLENE GLYCOL 17 GM PACKET PO (13:12)
[2024-12-14] MEDS: ACETAMINOPHEN 325 MG TABLET 650 MG PO (18:21)
[2024-12-14] MEDS: DULoxetine HCL 30 MG CAPSULE PO (20:34)
[2024-12-14] MEDS: LACTULOSE SYRUP 20 GM/30 ML UDC PO (21:11)
[2024-12-15] VITALS (11 sets, daily range): BP systolic 128–147; BP diastolic 72–81; PULSE 74–97; RESP 12–96; TEMP 36.1–36.3; O2SAT 93–96; BMI 39.2
[2024-12-15] MEDS: HYDROcodone/APAP 5/325 TABLET 1 TAB PO ×3 (02:55→17:34)
[2024-12-15] MEDS: PIPER/TAZO INJ 4.5 GM in SODIUM CHLORIDE 0.9% (POP) 100 ML IV (05:49)
[2024-12-15] MEDS: LEVOTHYROXINE SODIUM 125 MCG TABLET PO (06:01)
[2024-12-15] MEDS: PREGABALIN 75 MG CAPSULE PO ×2 (06:01→14:14)
[2024-12-15 06:23] LABS: Basophils # (Auto) 0.1 Thou/mm3 (0.0-0.2); Basophils % (Auto) 1 % (0-2.5); Eosinophils # (Auto) 0.1 Thou/mm3 (0.0-0.5); Eosinophils % (Auto) 2 % (0-10); Hematocrit 29.8 % (36.0-46.0); Hemoglobin 9.3 g/dL (12.0-16.0); Immature Granulocytes % (Auto) 0 % (0-0); Immature Granulocytes Auto 0.01 Thou/mm3 (0.00-0.00); Lymphocytes # (Auto) 2.1 Thou/mm3 (1.0-4.8); Lymphocytes % (Auto) 45 % (10-50); Mean Corpuscular HGB Conc 31.2 g/dl (31.0-37.0); Mean Corpuscular Hemoglobin 25.4 pg (25.0-35.0); Mean Corpuscular Volume 81 fL (80-100); Monocytes # (Auto) 0.4 Thou/mm3 (0.0-0.8); Monocytes % (Auto) 8 % (0-12); Neutrophils # (Auto) 1.9 Thou/mm3 (1.8-7.7); Neutrophils % (Auto) 43 % (37-80); Nucleated Red Blood Cell % 0 /100 WBC (0); Platelet Count 429 Thou/mm3 (140-440); RDW Standard Deviation 47.6 fL (36.4-46.3); Red Blood Count 3.66 Miln/mm3 (4.00-5.20); White Blood Count 4.6 Thou/mm3 (3.6-11.0)
[2024-12-15 06:47] LABS: Anion Gap 9 (7-16); BUN/Creatinine Ratio 17 Ratio (12-20); Blood Urea Nitrogen 15 mg/dL (9-23); Carbon Dioxide 23.3 mMol/L (20.0-31.0); Chloride 113 mMol/L (98-107); Creatinine (Component) 0.9 mg/dL (0.6-1.3); Estimated Creatinine Clearance 70.4 mL/min (>60); Glucose 92 mg/dL (74-106); Osmolality,Calculated 289 (275-295); Potassium 4.1 mMol/L (3.4-5.1); Sodium 145 mMol/L (136-145); eGFR > 60 See Note
--- NOTE | 2024-12-15 08:00 | XR_ITS ---
Examination: Ultrasound-guided needle placement right basilic vein. Dual-lumen central line placement (PICC line). Fluoroscopy AP chest, portable, single view Exam date and time:December 15, 2024 1018 hours INDICATIONS: Need for long-term intravenous antibiotic therapy A timeout was completed verifying correct patient, procedure, site, positioning Informed consent provided Technique: The patient's site was prepped and draped in sterile fashion. Maximum Sterile Barrier Technique used including cap, mask, sterile gown, sterile gloves, and sterile full body drape. If ultrasound technique used: sterile gel and sterile probe covers. Hand Hygiene performed using proper scrub, soap and water, or alcohol-based hand rub. Site right portable apparatus utilized to confirm patency of the right basilic vein Utilizing ultrasonographic guidance successful 21-gauge needle puncture into the right basilic vein Ultrasound images recorded and stored. 5 cc 1% lidocaine administered for local anesthetic. Successful micropuncture with a 21-gauge needle is performed. 0.18 wire guide is then introduced into the SVC under fluoroscopic guidance. Dual-lumen catheter dilator is then introduced, followed by the catheter in the SVC and proper position under fluoroscopic guidance. Successful aspiration of blood and flushing with heparinized saline is then performed in the 2 venous limbs. The catheter sutured in place. Findings: Under fluoroscopy, the tip of the catheter is in good position in the vena cava. Portable chest x-ray, post line placement is ordered. Estimated blood loss 3 cc The patient tolerated the procedure well and was in stable and satisfactory condition at completion of the procedure Impression: Successful ultrasound-guided needle placement right basilic vein Successful placement of dual lumen central line, percutaneous Fluoroscopy 0.1 minute radiation dose 1.82 milligray. AP chest completion procedure demonstrates satisfactory position central line. May use central line.
[2024-12-15] MEDS: clonazePAM 0.5 MG TABLET 1 MG PO (08:40)
[2024-12-15] MEDS: amLODIPine BESYLATE 5 MG TABLET 10 MG PO (08:40)
[2024-12-15] MEDS: POLYETHYLENE GLYCOL 17 GM PACKET PO (08:40)
[2024-12-15] MEDS: Lisinopril 20 MG TABLET PO (08:41)
--- NOTE | 2024-12-15 09:18 | PC.SS ---
Follow up note: On IV antibiotic. Culture results are pending. Pt will return home with for IV antibotic.
--- NOTE | 2024-12-15 09:40 | PC.NURSE ---
PATIENT TRANSFER TO PROGRAM PROFESSIONAL FOR PICC LINE INSERTION. PT ALERT AND ORIENTED X3. ACCOMPANIED BY JEISON STODDARD.
[2024-12-15 09:59] LABS: Vancomycin,Trough 25.2 mcg/mL (5.0-10.0)
--- NOTE | 2024-12-15 10:10 | PD.IDPROG ---
Subjective Subjective Interval history: only cx are with esbl. no po options noted there. no pos bc. no joint aspiration. dr jimenez appears to have left rx to me. pt is out for surgery, so will see wed. Exam Vital Signs Temp Pulse Resp BP Pulse Ox O2 Del Method O2 Flow Rate 96.9 F 92 12 128/73 94 L CPAP 2 12/15/24 08:00 12/15/24 10:04 12/15/24 10:04 12/15/24 10:04 12/15/24 10:04 12/15/24 10:04 12/13/24 04:00 Narrative Exam out for surgery, will see wed pm Objective - Internal Medicine Labs 12/15/24 05:40 12/15/24 05:40 Labs: Laboratory Results - last 24 hr 12/15/24 12/15/24 05:40 09:22 WBC 4.6 RBC 3.66 L Hgb 9.3 L Hct 29.8 L MCV 81 MCH 25.4 MCHC 31.2 RDW Std Deviation 47.6 H Plt Count 429 Neut % (Auto) 43 Lymph % (Auto) 45 [place] % (Auto) 8 Eos % (Auto) 2 Baso % (Auto) 1 Neut # (Auto) 1.9 Lymph # (Auto) 2.1 [place] # (Auto) 0.4 Eos # (Auto) 0.1 Baso # (Auto) 0.1 Immature Gran # (Auto) 0.01 H Absolute Nucleated RBC 0.00 Immature Gran % 0 Nucleated RBC % 0 Sodium 145 Potassium 4.1 Chloride 113 H Carbon Dioxide 23.3 Anion Gap 9 BUN 15 Creatinine 0.9 Estim Creat Clear Calc 70.4 eGFR > 60 BUN/Creatinine Ratio 17 Glucose 92 Calculated Osmolality 289 Calcium 9.0 Vancomycin Trough 25.2 H* Assessment & Plan A&P Narrative infected tka rt, no washout surgery noted so far underlying dm II anxiety chronic pain if inflammatory markers are elevated then ertapenem 1 gm iv daily and rifampin po bid thru 01/22 with weekly cbc, cmp, esr and line removal at end of rx no po options for later on, so can try doxy and rifampin both bid after 6 weeks. f/u with others as there is nothing for me to do here and others can monitor labs. and her condition if esr/crp normal or nearly so, then I will see again on sun. Time Spent With Patient Time: Total time spent is greater than 50% in coordination of care (as documented) at patient's floor/unit and/or counseling patient:
[2024-12-15] MEDS: HEPARIN SOD LOCK SYR 100 UNIT/ML 500 UNIT INTRACATH (11:00)
[2024-12-15] MEDS: LIDOCAINE HCL 1% 20 ML VIAL 3 ML INFL (11:00)
[2024-12-15] MEDS: HEPARIN SOD LOCK SYR 100 UNIT/ML 500 UNIT (11:25)
--- NOTE | 2024-12-15 11:51 | PC.NURSE ---
PATIENT BACK IN ROOM ALERT AND ORIENTED X3, SHE C/O PAIN TO LEFT KNEE. FAMILY AT BEDSIDE
[2024-12-15] MEDS: ERTAPENEM INJ 1,000 MG in SODIUM CHLORIDE 0.9% (Popper) 50 ML 100 MG IV (11:55)
--- NOTE | 2024-12-15 12:52 | PC.CC ---
Addendum entered by Adalberto Gill RN 12/15/24 18:48: 1848: DC summary sent to [facility] Addendum entered by Adalberto Gill RN 12/15/24 17:03: meds will be delivered today, [facility] accepted and booked SOC 12/16 at noon. Addendum entered by Adalberto Gill RN 12/15/24 16:37: [facility] will deliver tonight. waiting for HH to respond with SOC. Addendum entered by Adalberto Gill RN 12/15/24 16:21: [facility] accpeted and booked. Coordinating with [facility] and [facility] for delivery of meds and SOC Addendum entered by Adalberto Gill RN 12/15/24 15:07: [facility] accepted and booked, pending HH SOC. HH ref sent Original Note: received order for HH for IV abx infusion. refer initiated and sent to infusion units, waiting for response
--- NOTE | 2024-12-15 13:49 | PC.NURSE ---
DR. MASON CALLED, UPDATE GIVEN ON PATIENT, ORDERS RECEIVED, READ BACK, AND CARRIED OUT.
--- NOTE | 2024-12-15 14:04 | PC.NURSE ---
DOCTOR MISAEL, CALLED FOR UPDATE, PUTTING NEW ORDERS AFTER DISCHARGE ORDER PUT IN.
--- NOTE | 2024-12-15 14:50 | ESDS_ITS ---
Planned Discharge Date 12/15/24 DS: Providers Provider Date of admission: 12/11/24 18:11 Primary care physician: Addi Schreiber Admitting Provider: Serg Stewart DO Attending Provider on Admission: Serg Stewart DO Consults: 12/11/24 12:31 Consult to Orthopedic Stat Comment: knee pain Consulting Provider: Nahum Julien 12/15/24 09:02 Consult to Infectious Diseases Stat Comment: PJI L knee s/p washout Consulting Provider: Yao Erwin Attending Provider on DC: Fabrizio Rangel MD Discharging Provider: Fabrizio Rangel MD DS: Diagnosis Problem List Completed Was Problem List Reviewed/Reconciled?: Yes Hospital Course Hospital Course Hospital course: Ms. Stevens is a 64-year-old female with past medical history significant for non insulin dependent type II Diabetes, hypertension, hyperlipidemia, hypothyroidism and anxiety disorder presented to [facility] ED on 12/12/2024 complaining of fever chills and noticing purulent discharge from her left knee. Patient underwent total left knee arthroplasty on September 26, [address] Julien. Patient underwent irrigation debridement and placement of Hemovac drain on 12/12/[address] Julien. Patient's wound cultures grew ESBL and patient was started on IV antibiotics, blood cultures are negative. Infectious disease specialist is consulted, patient had a PICC line placed on 12/15/2024 for which patient will continue IV antibiotics with ertapenem for 6 weeks total as well as rifampin. Home health is ordered for patient to receive IV antibiotics and rifampin will be oral. Patient is advised to follow-up with Dr. Julien outpatient on , November 18 for wound dressing change. Patient is also to continue aspirin 81 mg twice daily. Patient is hemodynamically stable and cleared from orthopedic surgery to be discharged home with home health. Discharge Recommendations -Follow up with PCP within 1 week of discharge -Follow up with Dr. Verdugo on for wound dressing change -Continue Aspirin 81mg twice daily for DVT prophylaxis -For pain you may take over the counter tylenol as directed -Continue antibiotics through the PICC line with ertapenem 1 gm IV daily and rifampin 300 mg PO BID thru 01/22 - Rifampin may turn your urine to orange color so don't be alarmed -Obtain weekly CBC, CMP, and ESR -Remove PICC line at the end of treatment -Continue rest of medications as previously prescribed -Return to the ED or call EMS if symptoms return and/or worsen. 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 Pat Rangel (PGY-1)- Internal medicine resident Time Spent with Patient Time attestation: Total time spent providing and/or coordinating discharge services: Time spent: Greater than 30 minutes Home Health Home Health Referral Orders: 12/15/24 12:03 Home Health Referral Routine Reason For Exam: debility Home-Bound The patient must either because of illness or injury, need the aid of supportive devices such as crutches, canes, wheelchairs, and walkers; the use of special transportation; or the assistance of another person in order to leave their place of residence; OR have a condition such that leaving his or her home is medically contraindicated. In addition, the patient also meets the following criteria: patient is normally unable to leave the home and leaving home requires considerable taxing effort. Addendum to Home Health Certification Practitioner's Certification: I certify that the patient has been under my care in the hospital and the care of attending physician (see below). We had a [id number] encounter on (see date below). My clinical findings indicate that the patient is home bound per the above criteria and the Home Health Services noted in these orders are medically necessary. The primary reason for the [id number] encounter is related to the fact that the patient requires home health services. Date Certifying [id number] Physician Encounter: 12/11/24 Physician's Name who will Assume Oversight for Services: Addi Senior Physician's Phone No.who will Assume Oversight for Service: CREATIVE ASSISTANT - Community Resources: No PT to Evaluate: Yes PT to evaluate and provide a treatmnet plan to increase patient's mobility and strength. Wound Care: No IV Therapy: Yes: weekly esr, cbc, cmp IV Medication: Ertapenem IV Dose: 1Gm IV Frequency: Daily IV Stop Date: 01/22/25 Discontinue PICC Line Once Treatment Complete: Yes RN Safety Evaluation: Yes RN to evaluate and create a plan of care that will produce positive outcomes. Palliative Treatment: No Palliative treatment and evaluate the need for hospice. Home Health Aide - Personal Care: No Home Health Aide to assist with any ADL's. Exam Vital Signs Temp Pulse Resp BP Pulse Ox O2 Del Method O2 Flow Rate 97.2 F 78 19 129/81 94 L Room Air 2 12/15/24 12:12/15/24 12:12/15/24 12:12/15/24 12:12/15/24 12:12/15/24 11:27 12/13/24 04:00 Narrative Exam GENERAL: A&Ox3 . Awake, Not in acute distress NEURO: no focal neurological deficits HEENT: Atraumatic, Normocephalic. mucous membranes moist. Eyes open, symmetrical, & clear HEART: Normal Heart Sounds LUNGS: Clear to auscultation with no wheezing or crackles. ABDOMEN: soft, non-distended, non-tender, bowel sounds heard, no guarding or rebound tenderness SKIN: No Rash or ecchymoses EXTREMITIES: No edema, able to move all 4 extremities, pedal pulses palpated, wound drain in left knee seen. Discharge Plan Plan Patient Disposition: Home w/HOME HEALTH Patient condition on transfer: Stable Care Plan Goals: Discharge Recommendations: -Follow up with PCP within 1 week of discharge -Follow up with Dr. Verdugo on for wound dressing change -Continue Aspirin 81mg twice daily for DVT prophylaxis -For pain you may take over the counter tylenol as directed -Continue antibiotics through the PICC line with ertapenem 1 gm IV daily and rifampin 300 mg PO BID thru 01/22 - Rifampin may turn your urine to orange color so don't be alarmed -Obtain weekly CBC, CMP, and ESR -Remove PICC line at the end of treatment -Continue rest of medications as previously prescribed -Return to the ED or call EMS if symptoms return and/or worsen. Prescriptions/Referrals Prescriptions/Med Rec: New rifampin 300 mg Capsule 300 mg PO BID 42 Days Qty: 84 0RF Continued lisinopril 10 MG tablet 20 mg PO QDAY Qty: 0 metformin 500 mg Tablet 500 mg PO DAILY pregabalin [Lyrica] 75 mg Capsule 75 mg PO TID cetirizine [Zyrtec] 10 mg Tablet 10 mg PO QDAY clonazepam [Klonopin] 0.5 mg Tablet 1 mg PO BID levothyroxine 125 mcg tablet 125 mcg PO DAILY Patient Comments: take 1 tablet by mouth once daily duloxetine 30 mg capsule,delayed release(DR/EC) 30 mg PO HS Patient Comments: take 1 capsule by mouth once daily tramadol 50 mg tablet 100 mg PO TID aspirin [Ecotrin Low Strength] 81 mg Tablet,Delayed Release (Dr/Ec) 81 mg PO BID Qty: 60 0RF Referrals: Addi Senior [Primary Care Provider] - Nahum Julien MD [Physician] - 12/18/24 Patient/Caregiver Discharge Instructions Discharge Activity: activity as tolerated Other Discharge Activity Instructions:: Discharge Recommendations: -Follow up with PCP within 1 week of discharge -Follow up with Dr. Verdugo on for wound dressing change -Continue Aspirin 81mg twice daily for DVT prophylaxis -For pain you may take over the counter tylenol as directed -Continue antibiotics through the PICC line with ertapenem 1 gm IV daily and rifampin 300 mg PO BID thru 01/22 - Rifampin may turn your urine to orange color so don't be alarmed -Obtain weekly CBC, CMP, and ESR -Remove PICC line at the end of treatment -Continue rest of medications as previously prescribed -Return to the ED or call EMS if symptoms return and/or worsen. Education Materials: Knee Surg Exercise After, Knee Arthroscopy, Caring for Your PICC Dc, Flushing Your PICC Line at Home, Knee Pain, ED PICC Line Care Print Language: Kinyarwanda Stand Alone Forms: [employer] Award Info., Patient Portal Info Letter Discharge Order Discharge Orders: Discharge (Routine); Ordered 12/15/24 Ordered By: Tessy Najera Quality Discharge Quality Measures VTE prophylaxis Attestestation Attestation I have discussed and was present for the essential components of the discharge history, physical examination, diagnosis, and discharge treatment plan with the resident. I agree with the patient's discharge care as documented by the resident and amended herein by me. Eric Stewart, DO. Patient doing very well on day of discharge, we will discharge the patient with home health for IV antibiotics, ertapenem 1 g daily through 22 January and right Foley pin 300 mg twice daily also through 22 January per infectious disease recommendations. Patient does have a PICC line which can be discontinued at the end of antibiotics. Final cultures of the patient's knee from the washout demonstrated ESBL E. coli. Patient will follow-up with Dr. Verdugo on , 18 December for dressing change. Patient will also be discharged with aspirin 81 mg daily per orthopedic surgery recommendations. Patient is doing well, pain well- controlled, patient already has a prescription for tramadol at home for pain. The patient was stable, afebrile and tolerating p.o. intake at time of discharge home. The patient understood all discharge instructions, all questions were answered satisfactorily. The patient was instructed to return to the Emergency Department is symptoms worsened or persisted. Although this document has been carefully reviewed, there may still be some phonetic and other typographical errors. These errors are purely grammatical due to imperfections in the software program and should not be construed in any way to compromise the substance of the patient's medical care during this visit.
--- NOTE | 2024-12-15 15:40 | PC.NURSE ---
PROCESS OF DISCHARGE COORDINATION WITH TRANSFER NURSE; [facility] accepted and booked, pending [facility] SOC. HH ref sent.
== END 2024-12-15 18:53 | disposition home health service (06) | DRG 349 ==
LOC: SERX 17:29 → SERHOLD 18:23 → S3SX 20:58
PROVIDERS: Nurse Practitioner Family; Orthopaedic Surgery; Student in an Organized Health Care Education/Training Program; Admitting Provider Student in an Organized Health Care Education/Training Program; Emergency Provider Emergency Medicine; PCP Physician Assistant; Visit Provider Student in an Organized Health Care Education/Training Program
DX: T84.54XA Infection and inflammatory reaction due to internal left knee prosthesis, initial encounter (principal); Y83.1 Surgical operation with implant of artificial internal device as the cause of abnormal reaction of the patient, or of later complication, without mention of misadventure at the time of the procedure; E03.9 Hypothyroidism, unspecified; F41.9 Anxiety disorder, unspecified; E78.5 Hyperlipidemia, unspecified; I10 Essential (primary) hypertension; E11.9 Type 2 diabetes mellitus without complications; Z79.84 Long term (current) use of oral hypoglycemic drugs; G89.29 Other chronic pain; Z79.82 Long term (current) use of aspirin; Z79.890 Hormone replacement therapy; Z87.891 Personal history of nicotine dependence; Z96.651 Presence of right artificial knee joint
CPT/HCPCS: 36415; 73560; 80048; 80053; 80202; 83605; 84145; 85025; 85652; 85730; 86140; 86703; 86803; 87040; 87070; 87077; 87186; 87205; 96365; 96366; 96368; 99285; A4217; A4649; C1751; C1894; J0696; J1171; J1335; J1580; J1642; J1885; J2250; J2543; J2704; J3010; J3370; J3372; J3490; J7030; J7050; A9270

== ENCOUNTER → 2025-04-07 | Outpatient (CLI) | payer MEDICAID, SELFPAY ==
--- NOTE | 2025-04-07 11:12 | XR_ITS ---
Examination: Tibia-Fibula, left, 2 views Technique: Tibia-fibula AP lateral 2 views Date and time of exam: April 07, 2025, 1133 hours INDICATIONS: Lower leg pain 1 year. FINDINGS: No fracture or dislocation. Moderate osteopenia Total left knee arthroplasty with satisfactory alignment IMPRESSION: Total left knee arthroplasty with satisfactory alignment No fracture
--- NOTE | 2025-04-07 11:12 | XR_ITS ---
Examination: Knee, left, 3 views Technique: Knee AP, lateral, oblique 3 views Date and time of exam: April 07, 2025, 1133 hours INDICATIONS: Left knee replacement 1 year ago, left knee pain and swelling 1 year FINDINGS: Moderate osteopenia. Total left knee arthroplasty with satisfactory alignment. No fractures No loosening of the prosthetic components Small knee effusion IMPRESSION: Total left knee arthroplasty with satisfactory alignment
== END | disposition home or self-care (01) ==
PROVIDERS: PCP Physician Assistant; Referring Provider Orthopaedic Surgery; Visit Provider Orthopaedic Surgery
DX: M25.562 Pain in left knee (principal); Z96.652 Presence of left artificial knee joint
CPT/HCPCS: 73562; 73590

== ENCOUNTER 2025-06-16 17:10 | Emergency (ER) | payer MEDICAID, SELFPAY ==
[2025-06-16 17:45] VITALS: BP 110/74; PULSE 99; RESP 18; TEMP 36.6; O2SAT 95; BMI 29.7
--- NOTE | 2025-06-16 17:55 | XR_ITS ---
EXAMINATION: Thoracic spine 3 views TECHNIQUE: AP lateral: Lateral upper dorsal spine 3 views Date and time: June 16, 2025, 181 hours INDICATIONS: Patient fell 3 days ago with injury to the back, mid back pain. FINDINGS: Significant osteopenia No acute thoracic fracture Mild to moderate diffuse thoracic degenerative disc disease. IMPRESSION: No acute thoracic fracture
--- NOTE | 2025-06-16 17:55 | XR_ITS ---
Examination: CT brain head without contrast. 2-D sagittal coronal reconstructions Date and time of exam: June 16, 2025, 1846 hours INDICATIONS: Patient fell 3 days ago with injury to the head, headache CTDI: vol (mGy): 46.8 DLP: (mGycm): 881 Technique: Multiple CT axial sections of the brain have been obtained, 5 mm slice thickness. Contrast has not been administered. 2-D sagittal, coronal reconstructions have been obtained Low dose protocols were performed. One or more of the following dose reduction techniques were used; automated exposure control, adjustment of the mA and/or KV according to patient size, use of iterative reconstruction technique. Findings: No significant ventricular enlargement. Intra-axial or extra-axial hemorrhage density is not seen. No mass effect or midline shift Basal cisterns are not remarkable. Fourth ventricle is midline. Cranial vault intact. Impression: Negative for acute hemorrhage, mass effect or midline shift
--- NOTE | 2025-06-16 17:55 | XR_ITS ---
EXAMINATION: Lumbar spine 3 views TECHNIQUE: AP lateral: Lateral lower lumbar spine 3 views Date and time: 06 16, 2024, 1816 hours INDICATIONS: Rondon fell 2 days ago with injury to the lower back, lower back pain. FINDINGS: Severe osteopenia Satisfactory alignment lumbar vertebral bodies Mild to moderate disc narrowing L4-L5, L5-S1 No acute lumbar fracture IMPRESSION: No acute lumbar fracture
--- NOTE | 2025-06-16 17:55 | XR_ITS ---
Examination: CT cervical spine without contrast 2-D sagittal reconstructions 2-D coronal reconstructions 3-D reconstructions. Exam date and time: June 16, 2025, 1846 hours INDICATIONS: Patient fell 3 days ago, injury to the neck, neck pain CTDI:vol (mGy) 14.7 DLP: (mGycm) 307 Technique: Multiple 2 mm axial sections of the cervical spine have been obtained. The coronal and sagittal reconstructions have been obtained. 3-D reconstructions have been obtained. Low dose protocols were performed. One or more of the following dose reduction techniques were used; automated exposure control, adjustment of the mA and/or KV according to patient size, use of iterative reconstruction technique. Findings: Axial sections demonstrate intact base of the skull. C1 exhibit satisfactory relationship to the odontoid. No acute cervical vertebral body fracture seen. Alignment posterior spinous processes satisfactory. Impression: No acute cervical fracture.
--- NOTE | 2025-06-16 20:13 | PD.EDFALL ---
ED Fall Injury RME/HPI General Chief Complaint: Head Injury Stated Complaint: FELL BACKWARDS HITTING HEAD ON THE GROUND, DIZZY Time Seen by Provider: 06/16/25 17:56 Arrival date/time: 06/16/25 17:10 This is a case of 64-year-old female with history of diabetes came in in the emergency room due to fall injury history of present illness started when the patient was walking accidentally slipped and fell backward hitting his head on the ground currently complaining of headache neck pain mid back pain and lower back pain patient denies any loss of consciousness but currently having headache and dizziness denies any chest or abdominal injury no other injury noted Limitations: no limitations Related Data Home Medications ?Medication ?Instructions ?Recorded ?Confirmed lisinopril 10 mg tablet 20 mg PO QDAY #0 tabs 03/02/15 12/12/24 metformin 500 mg tablet 500 mg PO DAILY 07/21/18 12/12/24 pregabalin 75 mg capsule (Lyrica) 75 mg PO TID 07/21/18 12/12/24 cetirizine 10 mg tablet (Zyrtec) 10 mg PO QDAY 10/12/23 12/12/24 clonazepam 0.5 mg tablet (Klonopin) 1 mg PO BID 10/12/23 12/12/24 duloxetine 30 mg capsule,delayed 30 mg PO HS 10/12/23 12/12/24 release levothyroxine 125 mcg tablet 125 mcg PO DAILY 10/12/23 12/12/24 tramadol 50 mg tablet 100 mg PO TID 10/12/23 12/12/24 Previous Rx's ?Medication ?Instructions ?Recorded aspirin 81 mg tablet,delayed 81 mg PO BID #60 tabs 10/01/24 release (Ecotrin Low Strength) meclizine 25 mg tablet 25 mg PO QDAY PRN dizziness #20 06/16/25 tabs ondansetron 4 mg disintegrating 4 mg PO Q8H #20 tabs 06/16/25 tablet tramadol 50 mg tablet 50 mg PO Q8H PRN pain #10 tabs 06/16/25 Allergies Allergy/AdvReac Type Severity Reaction Status Date / Time No Known Allergies Allergy Verified 06/16/25 17:14 Review of Systems Review of Systems Systems Reviewed: All systems reviewed, normal except as documented Past Medical History Past Medical History NEUROLOGIC: Negative Neurological Disorders or Seizures CARDIAC: Positive Cardiac Disorders and Hypertension; Negative Congestive Heart Failure RESPIRATORY: Positive Bronchitis and Pneumonia (6 months ago); Negative Chronic Obstructive Pulmonary Disease (COPD) GASTROINTESTINAL: Positive Gastrointestinal Disorders and Obesity GENITOURINARY: Negative Genitourinary Disorders or Renal Disease REPRODUCTIVE: Positive Previous Pregnancies MUSCULOSKELETAL: Positive Musculoskeletal Disorders, Arthritis, Degenerative Disk Disease and Fibromyalgia ENT: Positive Glaucoma (eye drops) ENDOCRINE: Positive Endocrine Disorders, Diabetes Mellitus Type 2, Hyperthyroidism and Hypothyroidism; Negative Diabetes Mellitus Type 1 HEMATOLOGIC: Positive Anemia; Negative Blood Disorders or Sickle Cell Disease PSYCHO/SOCIAL: Positive Depression and Anxiety OTHER HISTORY: Positive Hospitalization ([place], surgery), Radiation Therapy (for thyroid), Chicken Pox and Cancer (thyroid); Negative Autoimmune Disease, Shingles, Blood Transfusions or Anesthesia Reactions Family History FAMILY HISTORY: Positive Family Cardiac Disorders and Family Surgery; Negative Family Psychiatric Problems, Family Respiratory Disorders, Family Gastrointestinal Problems, Family Cancer or Family Anesthesia Reaction Surgical History SURGICAL: Positive Thyroidectomy, Gastric Bypass Surgery, Arthroscopy (Left knee) and Hysterectomy Social History SMOKING STATUS: Never smoker ED Exam General Limitations: Present no limitations General appearance: Present alert, in no apparent distress and other (Patient is awake alert oriented not in distress nontoxic looking well-hydrated well-nourished) Head Head exam: Present atraumatic, normocephalic, normal inspection and other (No contusion no hematoma) Eye Eye exam: Present normal appearance, PERRL, EOMI and other (PERRL EOM intact normal conjunctiva no papilledema) ENT ENT exam: Present normal exam, normal oropharynx, mucous membranes moist and other (HEENT exam is normal and unremarkable) Neck Neck exam: Present normal inspection, full ROM, trachea midline and tenderness (Mild tenderness on the cervical area no crepitation no deformity no redness no swelling ROM is intact pulses were full and equal capillary refill less than 2 seconds no paraspinal no paravertebral tenderness negative for meningeal); Absent meningismus, lymphadenopathy or thyromegaly Chest Chest inspection: Present normal inspection and symmetric chest wall rise; Absent tenderness Respiratory Respiratory exam: Present normal lung sounds bilaterally; Absent respiratory distress, wheezes, stridor, accessory muscle use or prolonged expiratory phase Cardiovascular Cardiovascular exam: Present regular rate, normal rhythm and normal heart sounds; Absent bradycardia, tachycardia, irregular rhythm, systolic murmur or diastolic murmur Abdominal Exam Abdominal exam: Present soft and normal bowel sounds; Absent distention, tenderness, guarding, rebound, rigidity, diminished bowel sounds, hyperactive bowel sounds, hypoactive bowel sounds or organomegaly Extremities Exam Extremities exam: Present normal inspection and full ROM Back Exam Back exam: Present normal inspection, full ROM and tenderness (Mild tenderness thoracic area and lumbar area no crepitation no deformity no redness no swelling no paraspinal no paravertebral tenderness ROM intact neurovascular intact); Absent CVA tenderness (R), CVA tenderness (L), muscle spasm, paraspinal tenderness, vertebral tenderness, rashes, sciatic notch tenderness (R), sciatic notch tenderness (L), straight leg raise (R) or straight leg raise (L) Neurological Exam Neurological exam: Present alert, oriented X3, CN II-XII intact, normal gait, reflexes normal and other (Awake alert oriented x 4 no focal deficit GCS 15/15 steady gait memory intact no slurring speech no facial droop motor or sensory reflex are all normal in all extremities negative); Absent motor sensory deficit Psychiatric Psychiatric exam: Present normal affect and normal mood Skin Skin exam: Present warm, dry, intact and normal color Course Quality Measures none Orders Category Date Time Status CT cervical spine wo con Stat Exams 06/16/25 17:[address] head/brain wo con Stat Exams 06/16/25 17:55 Completed XR lumbar spine 2-3V Stat Exams 06/16/25 17:55 Completed XR thoracic spine 3V Stat Exams 06/16/25 17:55 Completed Vital Signs Vital signs: Vital Signs Temperature 97.9 F 06/16/25 17:45 Pulse Rate 99 06/16/25 17:45 Respiratory Rate 18 06/16/25 17:45 Blood Pressure 110/74 06/16/25 17:45 Pulse Oximetry (%) 95 06/16/25 17:45 Oxygen Delivery Method Room Air 06/16/25 17:45 Oxygen saturation is 95% in room Fall MDM Narrative MDM Narrative:: This is a case of 64-year-old female with history of diabetes came in in the emergency room due to fall injury history of present illness started when the patient was walking accidentally slipped and fell backward hitting his head on the ground currently complaining of headache neck pain mid back pain and lower back pain patient denies any loss of consciousness but currently having headache and dizziness denies any chest or abdominal injury no other injury noted physical examination patient is awake alert oriented not in distress nontoxic looking well-hydrated well-nourished vital signs stable BP stable not tachycardic not tachypneic afebrile and nonhypoxic neurological exam is normal awake alert oriented x 4 no focal deficit GCS 15/15 steady gait PERRL EOM intact normal conjunctiva no palpable edema no injury on the head noted mild tenderness cervical thoracic and lumbar area no crepitation no deformity no redness no paraspinal no paravertebral tenderness ROM intact neurovascular intact CT scan of the head and neck were normal x-ray of the thoracic and lumbar is also normal no fracture no dislocation at this point patient sustained an head injury and sprain of the cervical thoracic and lumbar patient will follow-up with PCP in 2 days for reevaluation head injury precaution was also discussed with the check with the patient for any changes of sensorium she is informed to return in the emergency room or call [phone] Patient was discharged with comfortable condition walking with stable gait. Patient verbalized no further complains explained diagnosis and answered patient question. Patient is comfortable with the proposed management plan including the need to follow up with his/her primary care physician and any specialist if applicable Discussed patient for any urgent condition or worsening sx, He/She needed to go to emergency room immediately or call 911. Patient acknowledge the responsibility to follow up as instructed and to monitor her/his symptoms. For any persistence of the symptoms for more than 3-5 days return precaution advised. Discussed the result of the test and was given printed discharge instructio Patient data External records reviewed:: [facility] previous records Clinical information provided by:: patient Social determinants that could affect healthcare access:: none Patient has the following chronic illnesses:: None How is presenting disease/condition affected by chronic disease/condition?: no chronic disease Evaluation data The following diagnostics were reviewed and interpreted by me:: radiology exam(s) Lab and/or radiology exams considered but not ordered:: Reviewed Interpretation Summary: Reviewed Medications / Prescriptions Medications or Prescriptions considered but not ordered:: Give Medication administrations:: Given Consultations Consultation(s) initiated? (list below): No Diagnosis Fall Differential Diagnosis: other (Head injury cervical sprain thoracic sprain lumbar sprain) Most likely diagnosis given after review of the tests above:: Head injury cervical sprain thoracic sprain lumbar sprain Admission Indicated Admission indicated?: not indicated Explain why admission is indicated or not indicated:: Not indicated Admission Request Was there a request for admission?: No Admission Attestation Admission request attestation: Not indicated Disposition Plan Disposition Plan: Discharge Discharge Attestation Discharge Attestation: The patient and all family members were given an opportunity to ask questions and understood the discharge instructions. Discharge instructions specifically effects, indications for sooner follow up or return to the emergency department, and the expected course of current diagnosis. Patient condition: Stable Discharge Plan Plan Patient Disposition: HOME (Self Care) Patient condition on transfer: Stable Prescriptions/Referrals Prescriptions/Med Rec: New tramadol 50 mg tablet 50 mg PO Q8H MDD max 4 tabs per day PRN (Reason: pain) Qty: 10 0RF meclizine 25 mg tablet 25 mg PO QDAY PRN (Reason: dizziness) Qty: 20 0RF ondansetron 4 mg tablet,disintegrating 4 mg PO Q8H Qty: 20 0RF No Action lisinopril 10 MG tablet 20 mg PO QDAY Qty: 0 metformin 500 mg Tablet 500 mg PO DAILY pregabalin [Lyrica] 75 mg Capsule 75 mg PO TID cetirizine [Zyrtec] 10 mg Tablet 10 mg PO QDAY clonazepam [Klonopin] 0.5 mg Tablet 1 mg PO BID levothyroxine 125 mcg tablet 125 mcg PO DAILY Patient Comments: take 1 tablet by mouth once daily duloxetine 30 mg capsule,delayed release(DR/EC) 30 mg PO HS Patient Comments: take 1 capsule by mouth once daily tramadol 50 mg tablet 100 mg PO TID aspirin [Ecotrin Low Strength] 81 mg Tablet,Delayed Release (Dr/Ec) 81 mg PO BID Qty: 60 0RF Referrals: Addi Senior [Primary Care Provider] - In 1 week Problem List Clinical Impression: Fall, Head injury, Cervical sprain, Sprain of thoracic region, Lumbar sprain Patient/Caregiver Discharge Instructions Education Materials: ED Back Sprain/Strain, ED Fall with Uncertain Cause, ED Head Injury (Adult), ED Neck Sprain or Strain Additional Instructions: Follow-up with your primary care physician in 2 days for reevaluation for any worsening symptoms or any emergent concerns such as headache nausea vomiting dizziness blurring of vision numbness weakness tingling sensation unstable gait memory loss return to the emergency room immediately or call 911 take your medication as directed ice pack and warm compress as needed for pain Print Language: Portuguese Stand Alone Forms: [employer] Patient Portal Info Letter PA/EMPLOYEE BENEFITS INSURANCE AGENT Supervising Physician PA/EMPLOYEE BENEFITS INSURANCE AGENT Supervising Physician: Dr. Corona
[2025-06-16 20:27] VITALS: BP 112/87; PULSE 99; RESP 18; TEMP 36.7; O2SAT 99
== END 2025-06-16 20:28 | disposition home or self-care (01) ==
PROVIDERS: Emergency Provider Family Medicine; PCP Physician Assistant
DX: S13.4XXA Sprain of ligaments of cervical spine, initial encounter (principal); S23.3XXA Sprain of ligaments of thoracic spine, initial encounter; S33.5XXA Sprain of ligaments of lumbar spine, initial encounter; S09.90XA Unspecified injury of head, initial encounter; W01.0XXA Fall on same level from slipping, tripping and stumbling without subsequent striking against object, initial encounter; Y93.01 Activity, walking, marching and hiking
CPT/HCPCS: 70450; 72072; 72100; 72125; 99283